=== PATIENT | female | born 1940 | race Caucasian/White ===

== ENCOUNTER → 2024-01-17 14:33 | Outpatient (REF) | payer OTHER, SELFPAY | LOC: RAD 14:33 | PROVIDERS: ATTENDING PHYSICIAN Nurse Practitioner | DX: J18.9 Pneumonia, unspecified organism (principal) | CPT/HCPCS: 71046 ==

== ENCOUNTER 2024-10-11 08:03 | Inpatient (IN) | payer OTHER, SELFPAY ==
[2024-09-13 13:20] VITALS: BMI 34.2
[2024-09-13 13:42] LABS: Hematocrit 37.7 % (37.0-47.0); Hemoglobin 12.9 g/dL (12.0-16.0); Mean Corp Hgb Conc. 34.2 g/dL (33.0-37.0); Mean Corpuscular Hgb 31.5 pg (27.0-31.0); Mean Platelet Volume 9.1 fL (7.4-10.4); Platelet Count 264 10^3/uL (130-400); Red Cell Dist. Width 13.4 % (11.5-14.5); White Blood Cell Count 8.6 10^3/uL (4.8-10.8)
[2024-09-13 14:08] LABS: Glycohemoglobin (HgbA1c) 5.4 % (4.0-5.6)
[2024-09-13 14:09] LABS: ALT (SGPT) 21 U/L (0-35); AST (SGOT) 26 U/L (14-36); Albumin 4.6 g/dl (3.5-5.0); Alkaline Phosphatase 72 U/L (38-126); Blood Urea Nitrogen 27 mg/dl (7-17); Calcium 9.8 mg/dl (8.4-10.2); Carbon Dioxide 25 mmol/L (22-30); Chloride 100 mmol/L (98-107); Estimated Creatinine Clearance 39 ml/min; Glucose 105 mg/dl (70-99); Potassium 4.5 mmol/L (3.5-5.1); Sodium 138 mmol/L (135-145); eGFR 49.24
[2024-10-04 10:10] VITALS: BMI 34.2
[2024-10-04 10:40] VITALS: BMI 34.2
[2024-10-11] VITALS (17 sets, daily range): BP systolic 91–155; BP diastolic 48–85; PULSE 61; O2SAT 92
[2024-10-11] MEDS: TYLENOL 650 MG PO ×3 (08:42→19:47)
[2024-10-11] MEDS: CELEBREX 200 MG PO (08:43)
--- NOTE | 2024-10-11 11:59 | W.DS.TRANS ---
DC Summary - Processing Tech
-
Discharge Instructions:
Sleep Apnea Risk Intermediate
Discharge Diagnosis/Procedures R TKA Dr. Ross 10/11/24
Diet As tolerated
Activity With Walker
Driving Restrictions No driving
Bathing Restrictions OK to Shower
Other Services PT
Instructions:
Stand-Alone Forms: Total Hip/Knee Replacement D/C
Changes to Home Medications: Yes
Discharge Medications:
DC Medications w/original date entered in Mobile Event Guide
levothyroxine 25 mcg tablet 25 mcg PO DAILY Thyroid 03/02/19
hydrochlorothiazide 12.5 mg tablet 25 mg PO BID Fluid retention/Swelling 03/15/19
glucosamine sulf dipot chlr,msm,chond 550 mg-C 30 mg-colby 1 mg capsule (Glucosamine Chondroitin) 1 ea PO DAILY Supplement ##0 06/06/20
losartan 50 mg tablet 100 mg (2 x 50 mg) PO DAILY Blood pressure ##0 06/06/20
Vitamin W-Gzbp-Zaemznxux 1 dose PO DAILY 10/04/24
calcium carbonate 1,000 mg PO DAILY 10/04/24
cholecalciferol (vitamin D3) 25 mcg (1,000 unit) tablet (Vitamin D3) 25 mcg PO DAILY 10/04/24
chromium picolinate 400 mcg tablet 800 mcg PO DAILY 10/04/24
coenzyme Q10 100 mg capsule (CoQ-10) 200 mg PO DAILY 10/04/24
mecobalamin (vitamin B12) 1,000 mcg chewable tablet 1,000 mcg PO DAILY 10/04/24
metoprolol succinate 100 mg tablet,extended release 24 hr 100 mg PO DAILY 10/04/24
metoprolol succinate 50 mg tablet,extended release 24 hr 50 mg PO HS 10/04/24
mupirocin 2 % topical ointment 1 applic topical BID 10/04/24
omega 7-gah-esd-fish oil 1,000 mg (120 mg-180 mg) capsule (Fish Oil) 1 cap PO DAILY 10/04/24
vit C 250 mg-vit E 90 mg-zinc 40 mg-copper 1 ko-uhvljd-uingyz capsule (PreserVision AREDS-2) 1 ea PO BID Supplement 10/04/24
acetaminophen 500 mg capsule 1,000 mg (2 x 500 mg) PO QID #0 caps 10/11/24
aspirin 325 mg tablet 325 mg PO DAILY blood clot prevention #1 tab 10/11/24
dexamethasone 4 mg tablet 4 mg PO BID inflammation #6 tabs 10/11/24
docusate sodium 100 mg capsule (Colace) 100 mg PO BID stool softner #1 cap 10/11/24
magnesium hydroxide 400 mg/5 mL oral suspension (Milk of Magnesia) 30 ml PO HS PRN Constipation #1 mL 10/11/24
ondansetron 4 mg disintegrating tablet 4 mg PO Q6H PRN n/v #20 tabs 10/11/24
oxycodone 5 mg tablet 5 mg PO Q6H PRN 1 tab moderate pain, 2 tabs severe pain #30 tabs 10/11/24
sennosides 8.6 mg tablet (Senokot) 17.2 mg (2 x 8.6 mg) PO BID laxative #2 tabs 10/11/24
Home Medication Changes
acetaminophen 500 mg capsule 1,000 mg (2 x 500 mg) PO QID #0 caps 10/11/24
aspirin 325 mg tablet 325 mg PO DAILY blood clot prevention #1 tab 10/11/24
dexamethasone 4 mg tablet 4 mg PO BID inflammation #6 tabs 10/11/24
docusate sodium 100 mg capsule (Colace) 100 mg PO BID stool softner #1 cap 10/11/24
magnesium hydroxide 400 mg/5 mL oral suspension (Milk of Magnesia) 30 ml PO HS PRN Constipation #1 mL 10/11/24
ondansetron 4 mg disintegrating tablet 4 mg PO Q6H PRN n/v #20 tabs 10/11/24
oxycodone 5 mg tablet 5 mg PO Q6H PRN 1 tab moderate pain, 2 tabs severe pain #30 tabs 10/11/24
sennosides 8.6 mg tablet (Senokot) 17.2 mg (2 x 8.6 mg) PO BID laxative #2 tabs 10/11/24
Pending Results: No
[2024-10-11] MEDS: NORMOSOL-R/PLASMALYTE-A 1000 IV (15:07)
[2024-10-11] MEDS: ROXICODONE 5 MG PO (15:38)
[2024-10-11] MEDS: SYNTHROID 25 MCG PO (16:45)
[2024-10-11] MEDS: ASPIRIN 325 MG PO (17:51)
[2024-10-11] MEDS: ANCEF 5 IV (17:51)
[2024-10-11] MEDS: SENOKOT 17.2 MG PO (19:47)
[2024-10-11] MEDS: DECADRON 6 MG IV (19:47)
[2024-10-11] MEDS: COLACE 100 MG PO (19:47)
[2024-10-11] MEDS: BACTROBAN 2% OINTMENT 1 APPLIC NASAL (19:48)
[2024-10-11] MEDS: ULTRAM 25 MG PO (19:54)
[2024-10-11] MEDS: TOPROL XL 25 MG PO (21:57)
[2024-10-11] MEDS: NEURONTIN 300 MG PO (21:58)
[2024-10-12] MEDS: TYLENOL 650 MG PO ×4 (00:32→12:57)
[2024-10-12] MEDS: ANCEF 5 IV (02:58)
[2024-10-12 03:20] VITALS: BP 117/73
[2024-10-12] MEDS: SYNTHROID 25 MCG PO (05:35)
[2024-10-12] MEDS: ROXICODONE 2.5 MG PO (05:41)
[2024-10-12 07:10] VITALS: BP 136/67
--- NOTE | 2024-10-12 07:56 | W.PN.UPDATE ---
Update Note
Progress Note Update
pt sound asleep, I let her rest. plan for pt today and home later this am
[2024-10-12] MEDS: TOPROL XL 50 MG PO (08:08)
[2024-10-12] MEDS: ASPIRIN 325 MG PO (08:08)
[2024-10-12] MEDS: ULTRAM 25 MG PO (08:09)
[2024-10-12] MEDS: DECADRON 6 MG IV (08:09)
[2024-10-12] MEDS: BACTROBAN 2% OINTMENT 1 APPLIC NASAL (08:09)
[2024-10-12] MEDS: COLACE 100 MG PO (08:09)
[2024-10-12] MEDS: SENOKOT 17.2 MG PO (08:09)
--- NOTE | 2024-10-12 09:57 | W.PN.ORTHO ---
Today's Communication / Plan
-
d/c-patient lives alone and is w/o transportation to therapy -arranged home care
Assessment
.
Distal Motor Intact: Yes
Dressing:
Clean, dry and intact.
Plan
.
Surgery / Date: Alireza Ross 10/11/24
DVT Prophylaxis: Aspirin
Activity:
Out of bed.
PT/OT
Discharge Plan: Home w/ [facility]
Subjective
.
.:
Patient resting comfortably.
Vital Signs and Labs
.
Vital Signs and Labs:
Lab Results
09/13/24 12:21
09/13/24 12:21
Temp Pulse Resp BP Pulse Ox
97.8 F 75 16 136/67 97
10/12/24 07:10 10/12/24 08:08 10/12/24 07:10 10/12/24 08:08 10/12/24 07:10
Non-invasive Hgb result: 11.0
Physical Exam
-
HEENT: No pallor, cyanosis, or jaundice. Throat clear.
NECK: Supple. No JVD.
RESPIRATORY: Lungs clear to auscultation.
CVS: S1, S2 normal. RRR.� No murmur, rub or gallop.
ABDOMEN: Soft, non-tender. No distension. BS+/normal.
EXTREMITIES: strength equal, no calf pain with palpation
POT RELINER: AOx3. No focal deficits. strip polisher grossly intact
--- NOTE | 2024-10-12 10:17 | CM ---
Patient seen today working with OT
R TKA
IA completed. Case management consult completed.Explained IMM & verbalize understanding
Lives in a 1 story velma alone, 2 steps to enter
PLOF: Independent, no device
DME: Walker, cane, commode
Unable to get to outpatient post-op ([facility])
Spoke with Lisa & HH ordered
Patient prefers [facility] - referral placed in careport
PCP: Stefanie Rowe
Pharmacy: [facility]
PLAN: Home, with [id number] to transport
[2024-10-12 10:30] VITALS: BP 141/77; PULSE 68; O2SAT 95
--- NOTE | 2024-10-12 10:47 | VNURNOTE ---
Home Health Liaison met with patient to discuss [facility]therapy, visits, schedule and homebound status. Patient is agreeable and understands that visits at home will be 2-3 x per week to assess and teach medical management.Patient is aware that
[facility] will contact them for start of care in 1-2 days after discharge from [facility]. [facility] referral accepted in Care Port.
[2024-10-12 11:00] VITALS: BP 112/72
== END 2024-10-12 14:03 | disposition home health service (06) | DRG 470 ==
LOC: 2 SOUTH 08:03
PROVIDERS: ADMITTING PHYSICIAN Orthopaedic Surgery; FAMILY PHYSICIAN Hospitalist
PROC: 0SRC0J9 Replacement of Right Knee Joint with Synthetic Substitute, Cemented, Open Approach (ICD-10-PCS; 2024-10-11)
DX: M17.11 Unilateral primary osteoarthritis, right knee (principal); I10 Essential (primary) hypertension; E78.5 Hyperlipidemia, unspecified; E03.9 Hypothyroidism, unspecified; M06.4 Inflammatory polyarthropathy; Z96.652 Presence of left artificial knee joint; Z96.641 Presence of right artificial hip joint; Z79.899 Other long term (current) drug therapy; Z79.890 Hormone replacement therapy
CPT/HCPCS: 36415; 73560; 80053; 83036; 85027; 87070; 93005; 97116; 97161; 97166; 97530; C1713; C1776

== ENCOUNTER 2024-10-17 15:18 | Inpatient (IN) | payer OTHER, SELFPAY ==
[2024-10-17] VITALS (26 sets, daily range): BP systolic 30–130; BP diastolic 44–81; BMI 33.1
--- NOTE | 2024-10-17 07:27 | EDRN ---
Vj BERG currently at the pts bedside
--- NOTE | 2024-10-17 07:32 | ED.GENMED ---
History of Present Illness
<Freeman Khan PA-C - Last Filed: 10/17/24 09:06>
General
Chief Complaint: Abdominal Pain
Source: patient
Exam Limitations: none
Time Seen by Provider: 10/17/24 07:04
History of Present Illness
History of Present Illness:
84-year-old female 5 days postop from right knee arthroplasty presents with significant abdominal pain dry heaves and now lack of bowel movement. She was discharged from the hospital 4 days ago and upon discharge she had large amounts of diarrhea.
Since then she has not been able to have a bowel movement. She notes food taste bad. No fevers. She does note chills at times. She denies any blood in the stool.
Phy Exam
<Freeman Khan PA-C - Last Filed: 10/17/24 09:06>
Physical Exam
Physical Exam:
General: Uncomfortable appearing female no acute respiratory distress
HEENT: Normocephalic atraumatic
Heart: Regular rate and rhythm
Lungs: Clear no wheeze
Abdomen slightly firm and tender diffusely. Mild guarding or no rebound
Extremities: No cyanosis or edema
Skin: Warm no rash
Musculoskeletal exam: Right knee with near full extension and flexion almost to 90 degrees
Course
<MARILEE Clemente Last Filed: 10/17/24 09:06>
Orders/Labs/Results
Orders:
Orders
10/17/24 07:29
CT Abd/pelvis W Iv Cont Urgent
Comment:
Reason For Exam: abd pain, vomiting
0.9% Sodium Chloride 1000 ml [Nss] 1,000 ml IV BOLUS
Ondansetron Injectable [Zofran] 4 mg IV NOW STA
10/17/24 07:41
Complete Blood Count/With Diff Urgent
Comprehensive Metabolic Panel Urgent
Lipase Urgent
10/17/24 08:49
HYDROmorphone [Dilaudid] 0.5 mg IV NOW STA
Piperacillin/Tazo 3.375 Gram [Zosyn] 3.375 gram in 50 ml IV NOW
10/17/24 08:59
Ondansetron Injectable [Zofran] 4 mg .ROUTE .[facility]-MED ONE
10/17/24 09:11
Lactic Acid Q4H
Comment: CANCEL 2nd LACTIC ACID IF 1st LACTIC ACID IS LESS THAN 2
Blood Culture Q30M
ALFONSO Source: Blood/Venous
Specimen Description:
Blood Culture Q30M
ALFONSO Source: Blood/Venous
Specimen Description:
10/17/24 09:15
0.9% Sodium Chloride 1000 ml [Nss] 1,000 ml IV BOLUS
Pantoprazole 80 mg/100 ml Nss [Protonix] 80 mg in 100 ml IV Q10H
10/17/24 13:15
Lactic Acid Q4H
Comment: CANCEL 2nd LACTIC ACID IF 1st LACTIC ACID IS LESS THAN 2
Abnormal Lab Results
10/17/24
07:41
WBC 11.2 H 10^3/uL
(4.8-10.8)
RBC 3.89 L 10^6/uL
(4.20-5.40)
MCH 31.1 H pg
(27.0-31.0)
MCHC 32.3 L g/dL
(33.0-37.0)
Abs Immat Gran (auto) 0.1 H 10^3/uL
(0-0.05)
Absolute Neuts (auto) 7.9 H 10^3/uL
(1.4-6.5)
Absolute Monos (auto) 0.8 H 10^3/uL
(0.1-0.6)
Immature Gran % 0.6 H %
(0-0.5)
BUN 42 H mg/dl
(7-17)
Creatinine 1.4 H mg/dL
(0.6-1.0)
Glucose 165 H mg/dl
(70-99)
Total Protein 6.2 L g/dl
(6.3-8.2)
10/17/24 07:41
10/17/24 07:41
Vital Signs
Initial and Last Documented VS:
Initial Vital Signs
Temp Pulse Resp BP Pulse Ox
97.6 F 79 18 119/66 95
10/17/24 06:10 10/17/24 06:10 10/17/24 06:10 10/17/24 06:10 10/17/24 06:10
Last Documented Vital Signs
Temp Pulse Resp BP Pulse Ox
97.6 F 79 20 117/54 97
10/17/24 06:10 10/17/24 10:36 10/17/24 10:36 10/17/24 10:36 10/17/24 10:36
<Chele Calderón, DO - Last Filed: 10/17/24 11:27>
Orders/Labs/Results
Orders:
Orders
10/17/24 07:29
CT Abd/pelvis W Iv Cont Urgent
Comment:
Reason For Exam: abd pain, vomiting
0.9% Sodium Chloride 1000 ml [Nss] 1,000 ml IV BOLUS
Ondansetron Injectable [Zofran] 4 mg IV NOW STA
10/17/24 07:41
Complete Blood Count/With Diff Urgent
Comprehensive Metabolic Panel Urgent
Lipase Urgent
10/17/24 08:49
HYDROmorphone [Dilaudid] 0.5 mg IV NOW STA
Piperacillin/Tazo 3.375 Gram [Zosyn] 3.375 gram in 50 ml IV NOW
10/17/24 08:59
Ondansetron Injectable [Zofran] 4 mg .ROUTE .[facility]
10/17/24 09:11
Lactic Acid Q4H
Comment: CANCEL 2nd LACTIC ACID IF 1st LACTIC ACID IS LESS THAN 2
Blood Culture Q30M
ALFONSO Source: Blood/Venous
Specimen Description:
Blood Culture Q30M
ALFONSO Source: Blood/Venous
Specimen Description:
10/17/24 09:15
0.9% Sodium Chloride 1000 ml [Nss] 1,000 ml IV BOLUS
Pantoprazole 80 mg/100 ml Nss [Protonix] 80 mg in 100 ml IV Q10H
10/17/24 13:15
Lactic Acid Q4H
Comment: CANCEL 2nd LACTIC ACID IF 1st LACTIC ACID IS LESS THAN 2
Abnormal Lab Results
10/17/24
07:41
WBC 11.2 H 10^3/uL
(4.8-10.8)
RBC 3.89 L 10^6/uL
(4.20-5.40)
MCH 31.1 H pg
(27.0-31.0)
MCHC 32.3 L g/dL
(33.0-37.0)
Abs Immat Gran (auto) 0.1 H 10^3/uL
(0-0.05)
Absolute Neuts (auto) 7.9 H 10^3/uL
(1.4-6.5)
Absolute Monos (auto) 0.8 H 10^3/uL
(0.1-0.6)
Immature Gran % 0.6 H %
(0-0.5)
BUN 42 H mg/dl
(7-17)
Creatinine 1.4 H mg/dL
(0.6-1.0)
Glucose 165 H mg/dl
(70-99)
Total Protein 6.2 L g/dl
(6.3-8.2)
10/17/24 07:41
10/17/24 07:41
Vital Signs
Initial and Last Documented VS:
Initial Vital Signs
Temp Pulse Resp BP Pulse Ox
97.6 F 79 18 119/66 95
10/17/24 06:10 10/17/24 06:10 10/17/24 06:10 10/17/24 06:10 10/17/24 06:10
Last Documented Vital Signs
Temp Pulse Resp BP Pulse Ox
97.6 F 79 20 117/54 97
10/17/24 06:10 10/17/24 10:36 10/17/24 10:36 10/17/24 10:36 10/17/24 10:36
<Freeman Khan PA-C - Last Filed: 10/17/24 09:06>
MDM/Problems Addressed
Differential Diagnosis Includes:
Patient with abdominal pain 5 days postop right knee replacement. Question ileus versus bowel obstruction vs perforation versus infectious process
Labs pending. Will hydrate and do Zofran for nausea. CT pending.
<Chele Calderón DO - Last Filed: 10/17/24 11:27>
*Critical Care Note
Total Time (30-74mins, 75-104mins- exclusive of procedures): 30
comment:
Critical care statement: A total of 30 minutes of critical care time was provided for this patient. This includes management of unstable vital signs, evaluation of the patient at bedside, reviewing the patient's pertinent medical records, discussion
with consultants, review of old EKGs and review of pertinent medical records. This time with separate from time utilized to perform the aforementioned documented procedures
<Freeman Khan PA-C - Last Filed: 10/17/24 09:06>
Update Note
Update Note:
Preliminary read by ED provider shows free air in the abdomen. Concern for possible perforation. Zosyn ordered Dilaudid ordered pending official report. Discussed CT with radiology who suggest perforated duodenal ulcer.
Relayed this to the patient as well as the patient's son Karlo Ferreira on the telephone. Nimo ordered blood cultures and lactic ordered. Notified general surgery
Hospitalist made aware
ED Attending Note
<Freeman Khan PA-C - Last Filed: 10/17/24 09:06>
-
Portions of this chart may have been created with voice recognition software.� Occasional wrong word or��sound alike� substitutions may have occurred due to the inherent limitations of voice recognition software.
<Chele Calderón DO - Last Filed: 10/17/24 11:27>
ED Attending Note
Patient seen and examined by attending physician: Yes
I performed a history and physical exam of patient and discussed management with resident, I reviewed resident's note and agree with documented findings and plan of care.: Yes
ED Attending Note:
I reviewed and agree with history and treatment plan by Vj Khan. My exam revealed 84-year-old female who appears uncomfortable. Afebrile. CT abdomen pelvis consistent with duodenal perforation. Dr. Aguirre will take to the OR for repair.
Discharge Plan
Departure
Patient Disposition: Admit
Date of Disposition: 10/17/24
Time of Disposition: 09:02
Admit to: OR
Presentation/result/management discussed w/ accepting MD/DO: Hospitalist
Discharge Problem:
PERFORATED DUODENAL ULCER
Prescriptions:
No Action
levothyroxine 25 MCG tablet
25 mcg PO DAILY
hydrochlorothiazide 12.5 MG tablet
12.5 mg PO BID
losartan 50 MG tablet
100 mg PO DAILY Qty: 0 0RF
metoprolol succinate 50 mg Tablet Extended Release 24 Hr
50 mg PO HS
metoprolol succinate 100 mg Tablet Extended Release 24 Hr
100 mg PO DAILY
cholecalciferol (vitamin D3) [Vitamin D3] 25 mcg (1,000 unit) Tablet
25 mcg PO DAILY
calcium carbonate 500 mg calcium (1,250 mg) Tablet
1,000 mg PO DAILY
chromium picolinate 400 mcg Tablet
800 mcg PO DAILY
sennosides [Senokot] 8.6 mg tablet
17.2 mg PO BID Qty: 2 0RF
aspirin 325 mg tablet
325 mg PO DAILY Qty: 1 0RF
docusate sodium [Colace] 100 mg capsule
100 mg PO BID Qty: 1 0RF
oxycodone 5 mg tablet
5 mg PO Q6H PRN (Reason: 1 tab moderate pain, 2 tabs severe pain) Qty: 30 0RF
cyanocobalamin (vitamin B-12) 1,000 mcg Tablet
1,000 mcg PO DAILY
magnesium hydroxide [Milk of Magnesia] 400 mg/5 mL suspension
30 ml PO HSPRN PRN (Reason: Constipation)
ondansetron [ondansetron] 4 mg tablet,disintegrating
4 mg PO Q6HPRN PRN (Reason: nausea)
acetaminophen 500 mg capsule
1,000 mg PO QIDPRN PRN (Reason: mild pain)
Referrals:
Shirley Moreno MD [Family Provider] -
Interventions
Interventions:
*Risk Screen - Suicide Last Done: 10/17/24 06:10
*General Assessment Last Done: 10/17/24 06:10
*Neglect/Abuse Screening Last Done: 10/17/24 07:34
ED- Fall Risk Assessment Last Done: 10/17/24 07:34
*ED COVID-19 Vaccine History Last Done: 10/17/24 06:10
NZ-Dxfrmq-Hzlvmeahnu Assessment Last Done: 10/17/24 07:34
Discharge Date and Time
Print Language: LITHUANIAN
[2024-10-17] MEDS: ZOFRAN 4 MG IV (07:37)
[2024-10-17] MEDS: NSS 1000 IV ×3 (07:38→17:21)
[2024-10-17 07:59] LABS: % Basophils 0.3 % (0-2); % Eosinophils 0.2 % (0-6); % Immature Granulocytes 0.6 % (0-0.5); % Lymphocytes 21.8 % (20.5-51.1); % Monocytes 6.7 % (1.7-9.3); % Neutrophils 70.4 % (42.2-75.2); Absolute Immature Granulocytes 0.1 10^3/uL (0-0.05); Absolute Lymphocytes 2.4 10^3/uL (1.2-3.4); Absolute Monocytes 0.8 10^3/uL (0.1-0.6); Absolute Neutrophils 7.9 10^3/uL (1.4-6.5); Hematocrit 37.5 % (37.0-47.0); Hemoglobin 12.1 g/dL (12.0-16.0); Mean Corp Hgb Conc. 32.3 g/dL (33.0-37.0); Mean Corpuscular Hgb 31.1 pg (27.0-31.0); Mean Corpuscular Volume 96.4 fL (81.0-99.0); Mean Platelet Volume 8.7 fL (7.4-10.4); Nucleated Red Blood Cells % 0 %; Platelet Count 299 10^3/uL (130-400); Red Blood Cell Count 3.89 10^6/uL (4.20-5.40); White Blood Cell Count 11.2 10^3/uL (4.8-10.8)
[2024-10-17 08:09] LABS: ALT (SGPT) 29 U/L (0-35); AST (SGOT) 26 U/L (14-36); Albumin 3.9 g/dl (3.5-5.0); Alkaline Phosphatase 62 U/L (38-126); Blood Urea Nitrogen 42 mg/dl (7-17); Calcium 9.2 mg/dl (8.4-10.2); Carbon Dioxide 28 mmol/L (22-30); Chloride 98 mmol/L (98-107); Estimated Creatinine Clearance 31 ml/min; Glucose 165 mg/dl (70-99); Lipase 216 U/L (23-300); Potassium 4.1 mmol/L (3.5-5.1); Sodium 135 mmol/L (135-145); Total Bilirubin 1.1 mg/dl (0.2-1.3); Total Protein 6.2 g/dl (6.3-8.2); eGFR 36.87
--- NOTE | 2024-10-17 08:45 | EDRN ---
Vj BERG currently at the pts bedside
[2024-10-17] MEDS: DILAUDID 0.5 MG IV (09:00)
[2024-10-17] MEDS: ZOSYN 50 IV ×2 (09:01→20:40)
--- NOTE | 2024-10-17 09:05 | EDRN ---
per Vj BERG this RN administered Dilaudid IV for pain and Zosyn and also placed the pt on the bus monitor, the pt is currently in NSR in the 70's
--- NOTE | 2024-10-17 09:13 | EDRN ---
per the provider two sets of blood cultures were drawn and sent and lactic acid was drawn and sent
--- NOTE | 2024-10-17 09:16 | EDRN ---
this RN noticed that the pts Sp02 dipped to 88%, this RN placed the pt on 4L NC and notified the provider Vj BERG
--- NOTE | 2024-10-17 09:18 | EDRN ---
surgery currently at the pts bedside
[2024-10-17] MEDS: PROTONIX 100 IV ×2 (09:26→18:12)
--- NOTE | 2024-10-17 09:31 | EDRN ---
surgery obtained consent at the pts bedside, per the provider this RN started Protonix gtt at 8mg/hour
--- NOTE | 2024-10-17 09:35 | CON.GS ---
Medical History
-
Chief Complaint: Abdominal pain, nausea, vomiting
History of Present Illness:
Patient is a 84 yo F with a PMH of obesity, GERD, HTN, hypothyroidism, CKD, lumbar DDD, osteoarthritis s/p R MARLENE [place] [address] Ross, and recently s/p R TKA by Dr. Ross on 10/11/2024. Ms. Ferreira was recently discharged on 10/12 to home following
her recent orthopedic procedure. She reports that she has had issues with poor appetite as well as constipation postoperatively. Over the past 24 hours she has had worsening abdominal pain as well as episodes of bloody and dark brown emesis. She
continues to have generalized abdominal pain. No recent flatus or BM. No fevers or chills. Of note, she is on a full dose aspirin as well as meloxicam. She denies any steroid use. Former smoker. She is not on a PPI. She denies any prior
abdominal surgeries.
Past Medical History
Past Medical History: GERD, HTN, Hypothyroidism, Renal Failure and Other (Obesity, lumbar DDD, osteoarthritis)
Past Surgical History: Orthopedic (R TKA on 10/11/2024, R MARLENE in 2019)
Social History
Tobacco: Former Smoker
Alcohol: Daily
Drug: None
Family History
Family History: Reviewed & Not Pertinent
Allergies / Home Medications
Allergy/AdvReac Type Severity Reaction Status Date / Time
No Known Allergies Allergy Verified 10/17/24 06:10
�Medication �Instructions �Recorded �Confirmed �Type
levothyroxine 25 mcg tablet 25 mcg PO DAILY Thyroid 03/02/19 10/17/24 History
hydrochlorothiazide 12.5 mg tablet 12.5 mg PO BID Fluid 03/15/19 10/17/24 History
retention/Swelling
losartan 50 mg tablet 100 mg (2 x 50 mg) PO DAILY Blood 06/06/20 10/17/24 Rx
pressure ##0
calcium carbonate 1,000 mg PO DAILY Supplement 10/04/24 10/17/24 History
cholecalciferol (vitamin D3) 25 25 mcg PO DAILY Supplement 10/04/24 10/17/24 History
mcg (1,000 unit) tablet (Vitamin
D3)
chromium picolinate 400 mcg tablet 800 mcg PO DAILY 10/04/24 10/17/24 History
metoprolol succinate 100 mg 100 mg PO DAILY Heart 10/04/24 10/17/24 History
tablet,extended release 24 hr Disease/Condition
metoprolol succinate 50 mg 50 mg PO HS Heart Disease/Condition 10/04/24 10/17/24 History
tablet,extended release 24 hr
aspirin 325 mg tablet 325 mg PO DAILY blood clot 10/11/24 10/17/24 Rx
prevention #1 tab
docusate sodium 100 mg capsule 100 mg PO BID stool softner #1 cap 10/11/24 10/17/24 Rx
(Colace)
oxycodone 5 mg tablet 5 mg PO Q6H PRN 1 tab moderate 10/11/24 10/17/24 Rx
pain, 2 tabs severe pain #30 tabs
sennosides 8.6 mg tablet (Senokot) 17.2 mg (2 x 8.6 mg) PO BID 10/11/24 10/17/24 Rx
laxative #2 tabs
acetaminophen 500 mg capsule 1,000 mg PO QIDPRN PRN mild pain 10/17/24 10/17/24 History
cyanocobalamin (vitamin B-12) 1,000 mcg PO DAILY 10/17/24 10/17/24 History
1,000 mcg tablet
magnesium hydroxide 400 mg/5 mL 30 ml PO HSPRN PRN Constipation 10/17/24 10/17/24 History
oral suspension (Milk of Magnesia)
ondansetron 4 mg disintegrating 4 mg PO Q6HPRN PRN nausea 10/17/24 10/17/24 History
tablet
Review of Systems
-
A 10 point review of systems was completed, and was negative except as per HPI.
Physical Exam
Vital Signs
Temp Pulse Resp BP Pulse Ox
97.6 F 82 16 101/55 87
10/17/24 06:10 10/17/24 09:15 10/17/24 09:04 10/17/24 09:14 10/17/24 09:15
10/16/24 10/17/24 10/18/24
06:59 06:59 06:59
Actual Weight 87.5 kg
Body Mass Index (BMI) 33.1
Lab Results
10/17/24 07:41
10/17/24 07:41
WBC 11.2 10^3/uL (4.8-10.8) H 10/17/24 07:41
Hgb 12.1 g/dL (12.0-16.0) 10/17/24 07:41
Hct 37.5 % (37.0-47.0) 10/17/24 07:41
Plt Count 299 10^3/uL (130-400) 10/17/24 07:41
Abs Immat Gran (auto) 0.1 10^3/uL (0-0.05) H 10/17/24 07:41
Neutrophils % 70.4 % (42.2-75.2) 10/17/24 07:41
Physical Exam
General: Well Developed, Well Nourished and Pain
Respiratory: Non Labored Respirations
Cardiac: Regular Rhythm
GI: Tender, Distended, Obese and Other (Peritoneal with involuntary guarding and rebound)
Skin: Warm and Dry
Neuro: Nonfocal/Grossly Intact
Data Reviewed
-
CT Scan: Image Personally Visualized and interpreted
Labs: Labs Reviewed by me
Old Records: Reviewed
Assessment / Plan
-
Patient is a 84 yo F p/w perforated viscus
Based on risk factors including NSAID use and history of GERD as well as CT scan imaging with predominantly free air within the upper abdomen as well as thickening of the stomach and small bowel this is most likely related to a perforated gastric or
duodenal ulcer. Differential includes perforated small bowel or colon. Hemodynamically stable without peritoneal on exam. Unlikely to resolve with antibiotics and bowel rest alone. Recommend operative management. Patient agrees to proceed.
Plan for exploratory laparotomy, repair of perforated viscus, possible bowel resection. Procedure itself, as well as the risks, benefits, and alternatives was discussed. Specifically, we discussed the risks of bleeding, infection, injury to
surrounding structures, hernia formation, and general anesthetic risks. Typical postprocedural recovery was discussed. We discussed need for NGT, operative drain, and Condon catheter placement. We discussed the need for bowel rest and delays in
resuming oral nutrition. We discussed that at her age and with 2 recent operations she is likely to have a slow recovery will take at least 4 to 6 weeks. We discussed the potential need for rehab or fci facility given the above. All
questions answered. Consent signed.
-- Exploratory laparotomy, repair of perforated ulcer, possible bowel resection
-- NPO, IVF
-- Hold all NSAIDS
-- PPI gtt
-- Abx: Zosyn, will obtain operative cultures may need fungal coverage
-- Admit to Hospitalist post-op
[2024-10-17 09:41] LABS: Lactic Acid 1.5 mmol/L (0.7-2.0)
--- NOTE | 2024-10-17 09:54 | EDRN ---
the pts family are currently at the pts bedside
--- NOTE | 2024-10-17 10:34 | EDRN ---
the pt is resting in the stretcher in the lowest position, side rails up x2, call tierney within reach, HOB elevated, NSR in the 70's, the pt is currently still on 4L with Sp02 at 98%, no s/s of distress, the pt denies needing anything at this time,
there are three family members at the pts bedside, still awaiting for the OR to call this RN for verbal report, will continue to monitor the pt closely
--- NOTE | 2024-10-17 10:51 | W.SUR.PREOP ---
Pre-Operative Surgical Note
-
I have examined this patient prior to the performance of the scheduled procedure.
The patient's condition is unchanged from the time of the current History and
Physical and the patient is able to undergo the scheduled procedure.
--- NOTE | 2024-10-17 11:07 | EDRN ---
the pts son approached this RN at the nurses station and stated to this RN, 'Is there anyway that we can get her into an OR sometime soon?', this RN notified the surgeon Dr. Cowan, awaiting for an update, the pt is resting in stretcher in the
lowest position, side rails up x2, call tierney within reach, HOB elevated, VS WNL, the pt is in NSR in the 70's, the pt is currently still on 4L NC Sp02 98%, will continue to monitor the pt closely
--- NOTE | 2024-10-17 11:13 | EDRN ---
this RN called the OR due to not hearing back from the surgeon and per the OR nurse they will let me know when it is time for the pt to go to the OR, the OR nurse stated that she would call this RN with an update, this RN notified the pt and the pts
family
--- NOTE | 2024-10-17 11:55 | EDRN ---
this RN reached out to Dr. Cowan in regards to a time for the OR for the patient, awaiting for a response
--- NOTE | 2024-10-17 13:25 | EDRN ---
the OR nurse Starla RN called this RN and this RN gave verbal report
--- NOTE | 2024-10-17 13:33 | W.PN.HOSP.TC ---
Today's Communication/Plan
-
For OR now
Assessment / Plan
Assessment / Plan
Pt underwent Rt Total Knee arthroplasty on 10/11. Was dc to home on ASA as DVT prophylaxis.
Onset of abd pain on 10/12, shortly after DC. Unable to eat. Last BM was [address] RESEARCH [address]OR
[address] scan of abd: Findings consistent with perforated duodenal ulcer. Extensive free air within the upper abdomen with associated inflammatory stranding. Small volume of free fluid within the pelvis. Trace perihepatic ascites.
Pt seen by DR. Cowan and will be going to the OR shortly
Essential HTN
BP meds are on hold, follow post op BP
Abn EKG
discussed with Dr. Marquez
S/P Rt TKR
Hypothyroid on replacement
P:Pt is medically cleared for OR
Will admit to ICU post op. Discussed with Dr. Segal
follow BP
pt is a full code
see dictated note
Anticipated Discharge: > 48 hours
Subjective/Interval History
-
Date of Service: October 17, 2024
Severe abdominal pain
Objective Data
-
Labs:
Laboratory Results
10/17/24
07:41
WBC 11.2 H
Hgb 12.1
Hct 37.5
Plt Count 299
Sodium 135
Potassium 4.1
Chloride 98
Carbon Dioxide 28
BUN 42 H
Creatinine 1.4 H
Glucose 165 H
Calcium 9.2
Total Bilirubin 1.1
AST 26
ALT 29
Alkaline Phosphatase 62
Vital Signs:
Vital Signs
Temp Pulse Resp BP Pulse Ox
97.6 F 79 20 129/66 95
10/17/24 11:00 10/17/24 13:15 10/17/24 11:00 10/17/24 13:00 10/17/24 13:15
Review of Systems
-
History Source: Patient, Family (son, dgt, d-i-l in room), Physician (discussed with Dr. Segal) and Coordinated Provider
Constitutional: Denies Fever
EENT: Reports No Symptoms Reported
Respiratory: Reports No Symptoms
Cardiac: Denies Chest Pain
Abdomen/GI: Reports Abdominal Pain and Constipated
Musculoskeletal: Reports No Symptoms
Physical Exam
-
General: Well Developed, Well Nourished and Pain
HEENT: Normocephalic, Atraumatic and Moist Mucous Membranes
Respiratory: Clear to Auscultation (on shallow respirations)
Cardiac: Regular Rhythm and S1/S2
GI: Tender and Distended; Negative Normal Bowel Sounds
Musculoskeletal: No Clubbing, No Cyanosis and No Edema
Neuro: Awake and Alert
--- NOTE | 2024-10-17 13:44 | W.PN.UPDATE ---
Update Note
Progress Note Update
ECG specific ST-T wave changes and normal QT interval. No acute abnormalities. No cardiac ischemia. Please call if further questions.
--- NOTE | 2024-10-17 15:28 | W.IMMPOSTOP ---
Surgical Immed Post Op Note
-
Primary Surgeon: Camryn
Assisting Surgeon: None
Pre-op Diagnosis: Perforated gastric ulcer
Post-op Diagnosis: Perforated gastric ulcer
Procedure Performed: Exploratory laparotomy, repair of perforated gastric ulcer with modified Constantino patch repair
Anesthesia Type: General
Specimen / Cultures: None
Estimated Blood Loss: 7 cc
Complications: None
Operative Findings:
1. Large 1.5 cm gastric ulcer, pre-pyloric
2. Interrupted 2-0 silk primary repair --> Constantino patch with tongue of omentum secured with tails
3. Negative leak test x2
4. NGT position confirmed in OR
5. 19 Fr JERMAINE overlying repair
--- NOTE | 2024-10-17 16:50 | PTCARENOTE ---
Received pt from PACU and transferred to the ICU bed. She is awake and alert. NINA. Left FA #20g with Normosol infusing, changed to 0.9nss@100ml/hr as ordered. Protonix @8mg/hr. Right FA#20gprotective catheter flushed and patent. +peripheral pulses.
Weak pedal pulses. L/E edema with the right > left. Right knee dressing is original from her prior knee surgery that has old drainage on it. She stated that the visiting nurse was supposed to remove it tomorrow. She denies and numbness or tinging,
negative Homans. Tolerating nasal cannula 2 liters, dim breath sounds in the bases. Importance of using the incentive spirometer stresses to her being she had 2 surgeries within a week of each other she is high risk of PNA & blood clots. She
verbalized her understanding and demonstrated her use of the IS to 750ml. She stated that prior to her knee surgery 5 days ago she was a daily wine drinker. She also stated that she never had alcohol withdrawal, and the last time she drank wine or
any alcohol was at least 5 days ago. I had stress that sobriety would be recommended especially with her recent diagnosis this admission. She verbalized her understanding. Absent BSX4. Right nare SS secured @55cm to LIWS. Very small amount of clear
brown bilious secretions with scant flecks of red draining into canister. Indwelling Condon catheter placed on stat lock upon arrival. Draining small amount of cloudy yellow urine. Abdominal incision with Primaseal dressing with scant areas of
shadowing noted, marked with pen. SHe has an ice pack to her abdomen. She was informed of the plan of care and the use of the call tierney. She stated she is a DNR, that she did not want to be resuscitated. Will notify . Daughter and DIL at the
bedside. Updated on the plan of care. Safe environment maintained.
--- NOTE | 2024-10-17 17:49 | PTCARENOTE ---
Dr. Ro notified via TT that per the pt, she is a 'Do Not Resuscitate'.
--- NOTE | 2024-10-17 18:12 | PTCARENOTE ---
Ok to administer Lovenox dose tonight per Dr. Cowan.
[2024-10-17] MEDS: LOVENOX 40 MG SC (19:20)
--- NOTE | 2024-10-17 20:30 | PTCARENOTE ---
supervisor malted milk, aaox3, reports pain only with coughing, turned/repositioned. SR HR 80s. B/L IV WNL- NSS/Protonix gtt infusing per work list documentation. R SS to LIWS. Condon draining adequate amt yellow urine. mouth care done. POC discussed, call
tierney with pt.
[2024-10-17] MEDS: OFIRMEV 100 IV (20:40)
[2024-10-18] VITALS (18 sets, daily range): BP systolic 100–146; BP diastolic 46–70; BMI 33.7
[2024-10-18] MEDS: ZOSYN 50 IV ×4 (03:05→20:27)
[2024-10-18] MEDS: PROTONIX 100 IV ×2 (03:05→16:13)
[2024-10-18] MEDS: NSS 1000 IV ×2 (03:05→12:58)
[2024-10-18] MEDS: OFIRMEV 100 IV ×3 (03:06→16:10)
--- NOTE | 2024-10-18 04:00 | PTCARENOTE ---
no changes in pt assessment.
[2024-10-18 06:35] LABS: Hematocrit 30.8 % (37.0-47.0); Hemoglobin 10.2 g/dL (12.0-16.0); Mean Corp Hgb Conc. 33.1 g/dL (33.0-37.0); Mean Corpuscular Hgb 32.1 pg (27.0-31.0); Mean Corpuscular Volume 96.9 fL (81.0-99.0); Mean Platelet Volume 8.8 fL (7.4-10.4); Platelet Count 216 10^3/uL (130-400); Red Blood Cell Count 3.18 10^6/uL (4.20-5.40); White Blood Cell Count 10.3 10^3/uL (4.8-10.8)
[2024-10-18 06:41] LABS: INR 1.22; PT 15.7 Sec (11.4-14.6)
[2024-10-18 06:42] LABS: APTT 36.6 Sec (23.4-35.0)
[2024-10-18 07:03] LABS: Blood Urea Nitrogen 30 mg/dl (7-17); Calcium 7.9 mg/dl (8.4-10.2); Carbon Dioxide 27 mmol/L (22-30); Chloride 105 mmol/L (98-107); Estimated Creatinine Clearance 37 ml/min; Glucose 115 mg/dl (70-99); Potassium 4.3 mmol/L (3.5-5.1); Sodium 139 mmol/L (135-145); eGFR 44.36
--- NOTE | 2024-10-18 07:50 | WOUNDNOTE ---
WOC RN note: Marko texted RN Tash re: WOC RN does not manage surgical incisions and suggested she marko text jessica Davidson about any knee post op incisional care. Patient s/p R total knee Arthroplasty done by Dr. Ross on 10/11. Nurse is
agreeable to cancel WOC RN consult.
--- NOTE | 2024-10-18 07:50 | PTCARENOTE ---
Received pt laying in bed. She is awake and alert. She has a bath blanket to splint her abdominal incision for repositioning and coughing. She states her pain is manageable as long as she isn't moving or coughing. I reinforced that she should be
able to move and cough at an acceptable pain level. SHe verbalized her understanding Right FA with ABX, left Fa with IVF and Protonix drip. Knee-hi scd's intact. Right L/E more edematous than the left. +peripheral pulses. Right knee incision
unchanged with original post op dressing with old drainage. Nasal cannula 4 liters with pulse ox 91%. Dim in the bases. I implored her to use the incentive spirometer every 10 minutes while awake. I observed her using the IS to just under 1 liter. I
also stressed again that because she had 2 surgeries in under 1 week she is at high risk of developing PNA. She verbalized her understanding. Our mutual goal was to taper her oxygen and to sit in the chair. Absent BSX4. Right are Bina young secured
55cm, flushed as ordered. Maintained on LIWS. Small amount of brown bilious secretions draining. Due to void @ 1130. AM care performed, ice pack to right knee. Repositioned on her side. Safe environment maintained.
--- NOTE | 2024-10-18 08:13 | VNURNOTE ---
Chart reviewed. Patient is [facility] and [facility]. Will continue to follow hospital course and DC plans.
--- NOTE | 2024-10-18 09:41 | W.PN.GS2 ---
Today's Communication / Plan
-
-- Tentative plan for UGI on POD#3 (13)
-- Decrease IVF
-- Pain control: IV Tylenol and Dilaudid, NO NSAIDs including ASA
-- GI: PPI gtt will transition to PPI BID tomorrow
-- OOB to chair, PT for recent knee TKA
Assessment / Plan
-
Patient is a 84 yo F p/w perforated gastric ulcer POD#1 s/p exploratory laparotomy, modified Constantino patch repair of gastric ulcer
AVSS
WBC normalized, Cr trending down, baseline CKD
Pain well-controlled, JERMAINE outputs nonbilious.
Recovering well. No major postoperative concerns. Acute respiratory insufficiency likely multifactorial due to atelectasis, third spacing, splinting from pain, and general medical condition. No significant pulmonary effusion on chest X-ray
overnight. Plan to decrease IVF, will need to monitor urine output.
-- NPO, NGT decompression
-- Tentative plan for UGI on POD#3 (1213)
-- Decrease IVF
-- JERMAINE to remain in place
-- Abx: Zosyn, WBC normalized, no need for fungal coverage at this time, would plan on 7 days treatment
-- Pain control: IV Tylenol and Dilaudid, NO NSAIDs including ASA
-- GI: PPI gtt will transition to PPI BID tomorrow
-- DVT: Lovenox
-- OOB to chair, PT for recent knee TKA
Subjective Data
-
Date of Service: October 18, 2024
No major complaints. Abdominal soreness well-controlled. Denies any significant SOB, however, nursing notes desaturations with removal of supplemental O2. No chest pain. No nausea. No flatus or BM. Afebrile.
Objective Data
-
Intake and Output
10/17/24 10/18/24 10/19/24
06:59 06:59 06:59
Intake Total 1899 510 / 510
Output Total 1170 / 1170 35 / 35
Balance 730 / 840 475 / 475
Intake:
IV fluids (Total) 1750 / 1860 330 / 330
Normosol 100 / 100
Nss 1,000 ml @ 100 mls/hr IV . 1500 / 1600 300 / 300
Q10H [facility] Rx#:[id number]
Protonix 150 / 160 30 / 30
IV piggybacks 150 / 150 150 / 150
Amount instilled into GI Tube ( 0 / 0 30 / 30
Total)
Mcgrath Sump 0 / 0 30 / 30
Output:
Drain Output (Total) 160 / 160 35 / 35
Right Abdomen Ramesh-Marcus 160 / 160 35 35
Urine, Condon 1010 / 1010
Vital Signs
Temp Pulse Resp BP Pulse Ox
98.2 F 83 15 135/60 93
10/18/24 08:16 10/18/24 09:00 10/18/24 09:00 10/18/24 09:00 10/18/24 09:00
Lab Results
10/18/24 06:04
10/18/24 06:04
Calcium 7.9 mg/dl (8.4-10.2) L 10/18/24 06:04
Total Bilirubin 1.1 mg/dl (0.2-1.3) 10/17/24 07:41
AST 26 U/L (14-36) 10/17/24 07:41
ALT 29 U/L (0-35) 10/17/24 07:41
Alkaline Phosphatase 62 U/L (38-126) 10/17/24 07:41
Total Protein 6.2 g/dl (6.3-8.2) L 10/17/24 07:41
Albumin 3.9 g/dl (3.5-5.0) 10/17/24 07:41
Physical Exam
-
Gen: NAD
HEENT: NGT with minimal gastric outputs
Abd: soft, tender to palpation (appropriate), ND, non-peritoneal, midline dressing with some shadowing, JERMAINE serosang
--- NOTE | 2024-10-18 11:17 | CM ---
CM following re: discharge planning.
Discussed in rounds, reviewed pt's chart, met with pt.
Pt is an 84 year old female, admitted with primary dx of Abdominal pain, POD#1 s/p exploratory laparotomy. Continue supportive care
Pt reports she lives alone 1SH, 2 step to enter, has 4 supportive children. Pt reports she ambulates with a walker, has a cane and BSC. Pt reports she is active with [facility] and pt expressed her desire to return back home at discharge with [facility] and
family support.
[facility] liaison following for resumptions of care.
PCP: Stefanie Rowe
Pharmacy: [facility].
D/C plan: per pt's request home with [facility] and family support. Family to transport at discharge,
CM will follow with discharge plan updates as hospitalization progresses
--- NOTE | 2024-10-18 11:23 | PTCARENOTE ---
1 assist to the chair with use of her straight cane from home. Her breath sounds while standing are coarse in the right base and diminished in the left base. She had an acceptable level of pain while transferring to the chair. Safe environment
maintained. Call tierney within her reach.
--- NOTE | 2024-10-18 11:45 | PTCARENOTE ---
Dr. Alvarado provided an update and asked RN to notify Dr. Ross of her admission to the hospital for guidance of her right knee.
--- NOTE | 2024-10-18 12:19 | CON.INTV ---
Consultation
Consultation Request
Date/Time Consultation Requested: 10/18/2024
Date/Time Consultation Performed: 10/18/2024
Requesting Provider: Dr. Alvarado
Performing Provider: Dr. Daryl Segal
Reason for Consultation: status post exploratory laparotomy-perforated gastric ulcer
Medical History
-
History of Present Illness:
84-year-old woman hospitalized in early October after having right knee total replacement. She was discharged home on aspirin prophylactically. Patient developed abdominal pain at home. Abdominal pain was progressive.
Came to the emergency room for evaluation on 10/17/2024. CT abdomen pelvis demonstrated possible perforated viscus.
Emergently taken to the operating room, underwent laparotomy that demonstrated perforated gastric ulcer.
Currently in the critical care unit with NG tube in place.
Patient feels better.
Did not require vasopressors
Denies nausea or vomiting.
Patient apparently was taking NSAIDs on and off at home for arthritis.
Past Medical History
Past Medical History: Other (See assessment and plan)
Social History
Tobacco: Non-smoker
Alcohol: Daily (Wine)
Drug: None
Living: With Family
Employment: Retired
Family History
Family History: Reviewed & Not Pertinent
Allergies / Home Medications
Allergies
Allergy/AdvReac Type Severity Reaction Status Date / Time
No Known Allergies Allergy Verified 10/17/24 06:10
Home Medications
�Medication �Instructions �Recorded �Confirmed �Last Taken �Type
levothyroxine 25 mcg tablet 25 mcg PO DAILY Thyroid 03/02/19 10/17/24 10/16/24 History
hydrochlorothiazide 12.5 mg tablet 12.5 mg PO BID Fluid 03/15/19 10/17/24 10/16/24 History
retention/Swelling
losartan 50 mg tablet 100 mg (2 x 50 mg) PO DAILY Blood 06/06/20 10/17/24 10/16/24 Rx
pressure ##0
calcium carbonate 1,000 mg PO DAILY Supplement 10/04/24 10/17/24 7 Days Ago History
~10/10/24
cholecalciferol (vitamin D3) 25 25 mcg PO DAILY Supplement 10/04/24 10/17/24 7 Days Ago History
mcg (1,000 unit) tablet (Vitamin ~10/10/24
D3)
chromium picolinate 400 mcg tablet 800 mcg PO DAILY Supplement 10/04/24 10/17/24 7 Days Ago History
~10/10/24
metoprolol succinate 100 mg 100 mg PO DAILY Heart 10/04/24 10/17/24 10/16/24 History
tablet,extended release 24 hr Disease/Condition
metoprolol succinate 50 mg 50 mg PO HS Heart Disease/Condition 10/04/24 10/17/24 10/16/24 History
tablet,extended release 24 hr
aspirin 325 mg tablet 325 mg PO DAILY blood clot 10/11/24 10/17/24 10/16/24 Rx
prevention #1 tab
docusate sodium 100 mg capsule 100 mg PO BID stool softner #1 cap 10/11/24 10/17/24 Unknown Rx
(Colace)
oxycodone 5 mg tablet 5 mg PO Q6H PRN 1 tab moderate 10/11/24 10/17/24 Unknown Rx
pain, 2 tabs severe pain #30 tabs
sennosides 8.6 mg tablet (Senokot) 17.2 mg (2 x 8.6 mg) PO BID 10/11/24 10/17/24 Unknown Rx
laxative #2 tabs
acetaminophen 500 mg capsule 1,000 mg PO QIDPRN PRN mild pain 10/17/24 10/17/24 10/16/24 History
cyanocobalamin (vitamin B-12) 1,000 mcg PO DAILY Supplement 10/17/24 10/17/24 7 Days Ago History
1,000 mcg tablet ~10/10/24
magnesium hydroxide 400 mg/5 mL 30 ml PO HSPRN PRN Constipation 10/17/24 10/17/24 Unknown History
oral suspension (Milk of Magnesia)
ondansetron 4 mg disintegrating 4 mg PO Q6HPRN PRN nausea 10/17/24 10/17/24 Unknown History
tablet
Review of Systems
-
History Source: Patient
All other systems: Negative unless noted
Vitals / Labs / Diagnostic Testing
Vital Signs
Temp Pulse Resp BP Pulse Ox
98.2 F 81 17 125/66 94
10/18/24 11:23 10/18/24 10:30 10/18/24 10:30 10/18/24 10:00 10/18/24 11:23
Lab Data
10/18/24 06:04
10/18/24 06:04
Laboratory Results
10/18/24
06:04
PT 15.7 H
INR 1.22
APTT 36.6 H
Microbiology
10/17/24 09:11 Blood/Venous Blood Culture - Preliminary
No Growth in 24 hours- Final report to follow
10/17/24 09:11 Blood/Venous Blood Culture - Preliminary
No Growth in 24 hours- Final report to follow
Diagnostic Testing:
Physical Exam
-
HEENT: Normocephalic
Cardiovascular: S1/S2
Respiratory: Clear and Non-Labored Respirations
GI: Soft, Other (Decreased bowel sounds) and Other (NG tube in place without excessive drainage/abdominal incision intact.)
Neurology: Awake, Alert, Oriented and AO x 3
Skin: Warm
General: Comfortable
Assessment
-
Status post emergent exploratory laparotomy: Perforated gastric ulcer s/p repair
Postoperative blood loss anemia
Conditions present prior admission:
Skin squamous cell carcinoma
Hypertension
Former smoker in the distant [id number] history.
Status post knee replacement 10/2024
Daily wine consumption 2 to 3/day.
Assessment and plan:
Postoperative day 1-status post expiratory laparotomy, perforated gastric ulcer repair.
Hemodynamically stable
Postoperative blood loss anemia noted hemoglobin 10.2.
Follow H&H
N.p.o. per surgery
NG tube in place
Serial abdominal exam
-
Hold aspirin
SCD for DVT prophylaxis.
-
Restart outpatient medications when cleared by surgery
-
Gentle IV fluid hydration
Follow electrolytes daily
-
Out of bed as tolerated
-
Transfer to [facility].
Patient is DNR status-Advance directives
-
No additional recommendation from the critical care perspective.
Transfer to [facility]
Sign off
--- NOTE | 2024-10-18 12:48 | TRANSFER ---
Report called to RN for room 2127, she will be transferred via WC monitored with IVF and IV Protonix infusion.
--- NOTE | 2024-10-18 14:00 | PTCARENOTE ---
Received pt from ICU, pt ambulated from wheelchair to bed, NGT connected to LIS with Q4H tap water flush, JERMAINE draining serous, post op dressings CDI, VSS, pt weaned off of oxygen, oriented to room and call tierney. Pt resting comfortably in bed at this
time.
--- NOTE | 2024-10-18 14:20 | W.PN.UPDATE ---
Update Note
Progress Note Update
Notifed as a courtesy of patient's readmisison w. bleeding gastric ulcer s/p r tka 1 week ago. Reports knee is feeling really good in spite of not being on any nsaids presently. She has excellent motion from 0-120 and had scant old dried blood
on her bandage which I left in place. She has no eccymosis which is unusual.
She can/should continue physical therapy on the R TKA wbat with our normal TKA protocol. I'm good w. whatever anticoag program prefered by medicine/gen surg. Even just squeezers fine w. me as she is very mobile with the knee and has little to no
swelling and strong anticoagulation may be contraindicated under the circumstances. Her bandage can be removed and left open to air in a few days, possibly when d/c from if that is anticipated to take a few days.
She shoudl already have an outpatient office visit set up for 3 weeks from now.
[2024-10-18] MEDS: LOVENOX 40 MG SC (17:18)
--- NOTE | 2024-10-18 18:37 | W.PN.HOSP.TC ---
Today's Communication/Plan
-
follow labs
Assessment / Plan
Assessment / Plan
Pt underwent Rt Total Knee arthroplasty on 10/11. Was dc to home on ASA as DVT prophylaxis.
Onset of abd pain on 10/12, shortly after DC. Unable to eat. 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
[address] scan of abd: Findings consistent with perforated duodenal ulcer. Extensive free air within the upper abdomen with associated inflammatory stranding. Small volume of free fluid within the pelvis. Trace perihepatic ascites.
Pt seen by DR. Cowan and went to the OR
She is now Post op day #1 (OR 10/17)
Essential HTN
BP meds are on hold, follow post op BP. BP remains on the low side, currently 119/60
Abn EKG
discussed with Dr. Marquez
S/P Rt TKR
Hypothyroid on replacement
P:Doing well post op
transfer to tele
follow BP
will need to contact ortho PA's regarding post op knee wound dressing
pt is a full code
see dictated note
Anticipated Discharge: > 48 hours
Subjective/Interval History
-
Date of Service: October 18, 2024
Awake, alert, conversant
Objective Data
-
Labs:
Laboratory Results
10/18/24
06:04
PT 15.7 H
INR 1.22
APTT 36.6 H
Sodium 139
Potassium 4.3
Chloride 105
Carbon Dioxide 27
BUN 30 H
Creatinine 1.2 H
Glucose 115 H
Calcium 7.9 L
Vital Signs:
Vital Signs
Temp Pulse Resp BP Pulse Ox
98.2 F 85 18 119/60 92
10/18/24 15:13 10/18/24 15:13 10/18/24 15:13 10/18/24 15:13 10/18/24 15:13
I&O
10/17/24 10/18/24 10/19/24
06:59 06:59 06:59
Intake Total 1899 1445 / 1445
Output Total 1170 / 1170 325 / 325
Balance 730 / 840 1120 / 1120
Review of Systems
-
History Source: Patient, Physician (discussed with Dr. Segal) and Coordinated Provider
Constitutional: Denies Fever
EENT: Reports No Symptoms Reported
Respiratory: Reports No Symptoms
Cardiac: Denies Chest Pain
Abdomen/GI: Reports Abdominal Pain (post op) and Constipated
Musculoskeletal: Reports No Symptoms
Physical Exam
-
General: Well Developed, Well Nourished and Pain
HEENT: Normocephalic, Atraumatic, Moist Mucous Membranes and Other (NG tube in place)
Respiratory: Rales (bibasilar rales)
Cardiac: Regular Rhythm and S1/S2
GI: Tender and Distended; Negative Normal Bowel Sounds (absent BS)
Musculoskeletal: No Clubbing, No Cyanosis and No Edema
Neuro: Awake and Alert
[2024-10-19] VITALS (7 sets, daily range): BP systolic 148–170; BP diastolic 74–93; PULSE 80–85; BMI 33.4
[2024-10-19] MEDS: OFIRMEV 100 IV (00:11)
[2024-10-19] MEDS: NSS 1000 IV (03:43)
[2024-10-19] MEDS: PROTONIX 100 IV (03:44)
[2024-10-19] MEDS: ZOSYN 50 IV ×4 (03:44→20:06)
--- NOTE | 2024-10-19 04:39 | DOWNTIME ---
There was a [employer] Client Senior Controls Analyst Downtime on 10/19/2024 from 0200 to 10/19/2024 at 0325 . Downtime documentation of patient's care, including medication administrations, has been reconciled in the electronic record per guidelines. Refer to the
patient's paper chart under the miscellaneous tab to see printed paper medication records and downtime forms.
[2024-10-19 07:30] LABS: % Basophils 0.1 % (0-2); % Eosinophils 0.7 % (0-6); % Immature Granulocytes 0.8 % (0-0.5); % Lymphocytes 16.6 % (20.5-51.1); % Monocytes 4.5 % (1.7-9.3); % Neutrophils 77.3 % (42.2-75.2); Absolute Eosinophils 0.1 10^3/uL (0-0.7); Absolute Immature Granulocytes 0.1 10^3/uL (0-0.05); Absolute Lymphocytes 1.7 10^3/uL (1.2-3.4); Absolute Monocytes 0.5 10^3/uL (0.1-0.6); Hemoglobin 9.5 g/dL (12.0-16.0); Mean Corp Hgb Conc. 32.8 g/dL (33.0-37.0); Mean Corpuscular Hgb 32.2 pg (27.0-31.0); Mean Corpuscular Volume 98.3 fL (81.0-99.0); Mean Platelet Volume 9.1 fL (7.4-10.4); Nucleated Red Blood Cells % 0 %; Platelet Count 245 10^3/uL (130-400); Red Blood Cell Count 2.95 10^6/uL (4.20-5.40); Red Cell Dist. Width 13.2 % (11.5-14.5); White Blood Cell Count 10.3 10^3/uL (4.8-10.8)
[2024-10-19 07:46] LABS: Blood Urea Nitrogen 23 mg/dl (7-17); Calcium 8.2 mg/dl (8.4-10.2); Carbon Dioxide 21 mmol/L (22-30); Chloride 109 mmol/L (98-107); Estimated Creatinine Clearance 40 ml/min; Glucose 85 mg/dl (70-99); Potassium 3.6 mmol/L (3.5-5.1); Sodium 140 mmol/L (135-145); eGFR 49.24
--- NOTE | 2024-10-19 08:30 | W.PN.HOSP.TC ---
Today's Communication/Plan
-
start prn Hydralazine
check Thyroid studies
Assessment / Plan
Assessment / Plan
Pt underwent Rt Total Knee arthroplasty on 10/11. Was dc to home on ASA as DVT prophylaxis.
Onset of mild abd pain on 10/12, shortly after DC, became worse over next several days. Unable to eat. 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
[address] scan of abd: Findings consistent with perforated duodenal ulcer. Extensive free air within the upper abdomen with associated inflammatory stranding. Small volume of free fluid within the pelvis. Trace perihepatic ascites.
Pt seen by DR. Cowan and went to the OR. Post op, BP borderline low, but never required pressors.
She is now Post op day #2 (OR 10/17)
Post op ileus
pt noted small amount of flatus passed
Essential HTN
BP meds are on hold, follow post op BP. BP remains on the low side, currently 155/74
will write for prn Hydralazine
Abn EKG
discussed with Dr. Marquez, he felt only nonspecific ST-T changes and nl QT, discussed, did not believe Cardio consult was indicated, consult cancelled
S/P Rt TKR
Hypothyroid on replacement
will start supplement once NG tube clamped, consider parental if unable to give oral by 10/21. Will check T4/TSH
P:Doing well post op
transfer to tele
follow BP
discussed with Obie BERG regarding post op knee wound dressing. Pt states was to be seen today for removal.
DNR
Anticipated Discharge: > 48 hours
Subjective/Interval History
-
Date of Service: October 19, 2024
Awake, alert, conversant. States has passed some flatus
Objective Data
-
Labs:
Laboratory Results
10/19/24
06:17
WBC 10.3
Hgb 9.5 L
Hct 29.0 L
Plt Count 245
Sodium 140
Potassium 3.6
Chloride 109 H
Carbon Dioxide 21 L
BUN 23 H
Creatinine 1.1 H
Glucose 85
Calcium 8.2 L
Vital Signs:
Vital Signs
Temp Pulse Resp BP Pulse Ox
98.6 F 87 16 155/74 92
10/19/24 07:10 10/19/24 07:10 10/19/24 07:10 10/19/24 07:10 10/19/24 07:10
I&O
10/18/24 10/19/24 10/20/24
06:59 06:59 06:59
Intake Total 1899 1445 / 1445
Output Total 1170 / 1170 325 / 325
Balance 730 / 840 1120 / 1120
Review of Systems
-
History Source: Patient and Coordinated Provider
Constitutional: Reports Fever (100.1 last evening)
EENT: Reports No Symptoms Reported
Respiratory: Reports No Symptoms
Cardiac: Denies Chest Pain
Abdomen/GI: Reports Abdominal Pain (post op) and Constipated
Musculoskeletal: Reports No Symptoms
Neuro: Reports Weakness (feels she is getting weaker)
Physical Exam
-
General: Well Developed, Well Nourished, No Apparent Distress and Conversant
HEENT: Normocephalic, Atraumatic, Moist Mucous Membranes and Other (NG tube in place)
Respiratory: Clear to Auscultation; Negative Wheezes, Rales (rales resolved) or Rhonchi
Cardiac: Regular Rhythm and S1/S2
GI: Tender and Distended; Negative Normal Bowel Sounds (minimal BS LLQ)
Musculoskeletal: No Clubbing, No Cyanosis and No Edema
Neuro: Awake and Alert
Psych: Calm
--- NOTE | 2024-10-19 09:02 | W.PN.GS2 ---
Addendum entered and electronically signed by Fercho Cowan MD 10/19/24 10:10:
Son updated by phone.
Original Note:
Today's Communication / Plan
-
-- Decrease IVF
-- Tentative plan for UGI on POD#3 (10/20)
Assessment / Plan
-
Patient is a 84 yo F p/w perforated gastric ulcer POD#2 s/p exploratory laparotomy, modified Constantino patch repair of gastric ulcer
AVSS
WBC normalized, Cr trending down, baseline CKD
Pain well-controlled, JERMAINE outputs nonbilious.
Recovering well. No major postoperative concerns.
-- NPO, NGT decompression
-- Tentative plan for UGI on POD#3 (10/20)
-- Decrease IVF
-- JERMAINE to remain in place
-- Abx: Zosyn, WBC normalized, no need for fungal coverage at this time, would plan on 7 days treatment
-- Pain control: IV Tylenol and Dilaudid, NO NSAIDs including ASA
-- GI: PPI gtt will transition to PPI BID tomorrow
-- DVT: Lovenox
-- OOB to chair, PT for recent knee TKA
Subjective Data
-
Date of Service: October 19, 2024
No major complaints, bloating irritated by NGT. Denies worsening abdominal pain. No nausea or vomiting. Denies any SOB or chest pain. Low-grade fever yesterday to 100.1, work with I-S. OOB to chair.
Objective Data
-
Intake and Output
10/18/24 10/19/24 10/20/24
06:59 06:59 06:59
Intake Total 1899 1445 / 1445
Output Total 1170 / 1170 325 / 325
Balance 730 / 840 1120 / 1120
Intake:
Oral fluids 0 / 0
IV fluids (Total) 1750 / 1860 1035 / 1035
Normosol 100 / 100
Nss 1,000 ml @ 75 mls/hr IV . 1500 / 1600 525 / 525
[id number] [facility] Rx#:[id number]
Protonix 150 / 160 60 / 60
IV piggybacks 150 / 150 320 / 320
Amount instilled into GI Tube ( 0 / 0 90 /
Total)
[place] Sump 0 / 0 90 / 90
Output:
Drain Output (Total) 160 / 160 65 / 65
Right Abdomen Ramesh-Marcus 160 / 160 65 / 65
Gastrointestinal tube output (
Total)
[place] Sump
Urine, [place] 1010 / 1010
Urine, Voided 250 / 250
Other:
Number of approximated MODERATE 1
amounts of urine
Vital Signs
Temp Pulse Resp BP Pulse Ox
98.6 F 87 16 155/74 92
10/19/24 07:10 10/19/24 07:10 10/19/24 07:10 10/19/24 07:10 10/19/24 07:10
Lab Results
10/19/24 06:17
10/19/24 06:17
Calcium 8.2 mg/dl (8.4-10.2) L 10/19/24 06:17
Total Bilirubin 1.1 mg/dl (0.2-1.3) 10/17/24 07:41
AST 26 U/L (14-36) 10/17/24 07:41
ALT 29 U/L (0-35) 10/17/24 07:41
Alkaline Phosphatase 62 U/L (38-126) 10/17/24 07:41
Total Protein 6.2 g/dl (6.3-8.2) L 10/17/24 07:41
Albumin 3.9 g/dl (3.5-5.0) 10/17/24 07:41
Physical Exam
-
Gen: NAD
HEENT: minimal gastric outputs
Abd: soft, minimal tenderness, ND, non-peritoneal, midline with some shadowing, JERMAINE minimal serosang, non-bilious
[2024-10-19] MEDS: D5/0.45%NSS with KCL 20 MEQ 1000 IV (10:42)
[2024-10-19] MEDS: APRESOLINE 5 MG IV ×2 (12:56→20:05)
--- NOTE | 2024-10-19 16:15 | CM ---
Patient seen at bedside with daughter
Dx: perforated duodenum
post-op Exploratory laparotomy, repair of perforated gastric ulcer with modified Constantino patch repair
NPO, NGT
JERMAINE
PT rec HH
Current with [facility]
PLAN: Discharge when medically stable. [facility] with [facility]
[2024-10-19] MEDS: LOVENOX 40 MG SC (17:06)
[2024-10-19] MEDS: PROTONIX IV 40 MG IV (20:01)
[2024-10-19] MEDS: NSS (PRESERVATIVE FREE) 10 ML IV (20:03)
[2024-10-19] MEDS: FLUSH (NSS) 3 FLUSH IV (20:08)
[2024-10-20] VITALS (7 sets, daily range): BP systolic 136–162; BP diastolic 70–82; BMI 33.3
[2024-10-20] MEDS: OFIRMEV 100 IV (02:08)
[2024-10-20] MEDS: FLUSH (NSS) 2 FLUSH IV ×3 (02:10→03:59)
[2024-10-20] MEDS: ZOSYN 50 IV ×4 (02:38→20:37)
[2024-10-20] MEDS: APRESOLINE 5 MG IV (03:58)
[2024-10-20] MEDS: D5/0.45%NSS with KCL 20 MEQ 1000 IV (06:21)
[2024-10-20] MEDS: NSS (PRESERVATIVE FREE) 10 ML IV ×2 (08:16→20:37)
[2024-10-20] MEDS: PROTONIX IV 40 MG IV ×2 (08:17→20:37)
[2024-10-20] MEDS: FLUSH (NSS) 1 FLUSH IV (08:17)
--- NOTE | 2024-10-20 08:36 | W.PN.GS2 ---
Addendum entered and electronically signed by Madi Mcneill MD 10/20/24 08:50:
Patient seen and examined with surgical GOVERNMENT AFFAIRS FELLOW. Agree with documented progress note.
Postoperative pain controlled
No nausea, NG tube bothersome but tolerating well
Passing flatus; feels like ready to have bowel movement
AF (100.5 Tmax) VSS
NAD AAOx3
ABD: Soft, nondistended, minimal tenderness
Midline incision with occlusive dressing -clean and generally dry
NG tube -scant output in tubing/canister -nonbilious
JERMAINE-serosanguineous fluid, nonbilious
A/P: POD #3 status post ex lap modified Constantino patch repair gastric ulcer
Upper GI swallow today -if clean remove NG tube and start on clear liquid diet
Continue Zosyn day 3 of 7
PPI IV twice daily
Original Note:
Today's Communication / Plan
-
Check UGI
Assessment / Plan
-
Patient is a 84 yo F p/w perforated gastric ulcer POD#3 s/p exploratory laparotomy, modified Constantino patch repair of gastric ulcer
Low grade fever of 100.5 overnight, vitals otherwise stable
WBC normalized previously but await labs from today
Pain well-controlled, JERMAINE outputs nonbilious.
Recovering well overall
Passing flatus
-- UGI today, will hopefully be able to remove NGT pending findings and advance to clears
-- Continue IVF
-- JERMAINE to remain in place
-- Abx: Zosyn, WBC normalized, no need for fungal coverage at this time, would plan on 7 days treatment
-- Pain control: IV Tylenol and Dilaudid, NO NSAIDs including ASA
-- GI: PPI IV BID
-- DVT ppx: Lovenox, scd's
-- OOB to chair, PT for recent knee TKA
Subjective Data
-
Date of Service: October 20, 2024
Patient seen and examined at bedside with Dr. Mcneill. Denies n/v. Passing flatus. Minimal post op pain.
Objective Data
-
Intake and Output
10/19/24 10/20/24 10/21/24
06:59 06:59 06:59
Intake Total 1445 / 1445 1855 / 1855
Output Total 325 / 325 462 / 462
Balance 1120 / 1120 1393 / 1393
Intake:
Oral fluids 0 / 0 0 / 0
IV fluids (Total) 1035 / 1035 1375 / 1375
Nss 1,000 ml @ 75 mls/hr IV . 525 / 525
[id number] [facility] Rx#:[id number]
Protonix 60 / 60
IV piggybacks 320 / 320 300 / 300
Amount instilled into GI Tube ( 90 / 90 180 / 180
Total)
[place] Sump 90 / 90 180 / 180
Output:
Drain Output (Total) 62 / 62
Right Abdomen Ramesh-Marcus 62
Gastrointestinal tube output ( 400 / 400
Total)
[place] Sump 10 10 400 / 400
Urine, Voided 250 / 250
Other:
Number of approximated MODERATE 1 2
amounts of urine
Vital Signs
Temp Pulse Resp BP Pulse Ox
98.6 F 87 16 150/76 94
10/20/24 07:15 10/20/24 07:15 10/20/24 07:15 10/20/24 07:15 10/20/24 07:15
Calcium 8.2 mg/dl (8.4-10.2) L 10/19/24 06:17
Total Bilirubin 1.1 mg/dl (0.2-1.3) 10/17/24 07:41
AST 26 U/L (14-36) 10/17/24 07:41
ALT 29 U/L (0-35) 10/17/24 07:41
Alkaline Phosphatase 62 U/L (38-126) 10/17/24 07:41
Total Protein 6.2 g/dl (6.3-8.2) L 10/17/24 07:41
Albumin 3.9 g/dl (3.5-5.0) 10/17/24 07:41
Physical Exam
-
Gen: NAD
HEENT: minimal gastric outputs
Abd: soft, minimal tenderness, ND, non-peritoneal, midline with some shadowing, JERMAINE minimal serosang, non-bilious
NGT with low volume non-bilious outputs
[2024-10-20 09:20] LABS: Hematocrit 29.2 % (37.0-47.0); Hemoglobin 9.7 g/dL (12.0-16.0); Mean Corp Hgb Conc. 33.2 g/dL (33.0-37.0); Mean Corpuscular Hgb 31.3 pg (27.0-31.0); Mean Corpuscular Volume 94.2 fL (81.0-99.0); Platelet Count 283 10^3/uL (130-400); Red Cell Dist. Width 13.2 % (11.5-14.5); White Blood Cell Count 10.1 10^3/uL (4.8-10.8)
[2024-10-20 10:03] LABS: ALT (SGPT) 19 U/L (0-35); AST (SGOT) 17 U/L (14-36); Alkaline Phosphatase 62 U/L (38-126); Blood Urea Nitrogen 16 mg/dl (7-17); Calcium 8.4 mg/dl (8.4-10.2); Carbon Dioxide 23 mmol/L (22-30); Chloride 108 mmol/L (98-107); Estimated Creatinine Clearance 44 ml/min; Glucose 126 mg/dl (70-99); Potassium 3.4 mmol/L (3.5-5.1); Sodium 140 mmol/L (135-145); Total Bilirubin 0.7 mg/dl (0.2-1.3); Total Protein 5.3 g/dl (6.3-8.2); eGFR 55.21
--- NOTE | 2024-10-20 10:15 | W.PN.HOSP.TC ---
Today's Communication/Plan
-
UGI today, pending results will start scheduled Metoprolol and continue prn Hydralazine
Assessment / Plan
Assessment / Plan
Pt underwent Rt Total Knee arthroplasty on 10/11. Was dc to home on ASA as DVT prophylaxis.
Onset of mild abd pain on 10/12, shortly after DC, became worse over next several days. Unable to eat. 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
CT scan of abd 10/17 on admission: Findings consistent with perforated duodenal ulcer. Extensive free air within the upper abdomen with associated inflammatory stranding. Small volume of free fluid within the pelvis. Trace perihepatic ascites.
Pt seen by DR. Cowan and went to the OR. Post op, BP borderline low, but never required pressors.
She is now Post op day #3 (OR 10/17)
Post op ileus
pt noted having increased amount of flatus passed
Essential HTN
BP meds are on hold, follow post op BP. BP starting to rise.
has received prn Hydralazine. Depending on results of UGI, if pt allowed to take clear liquids, will plan on resuming oral Metoprolol scheduled, if not will order scheduled IV
Abn EKG
discussed with Dr. Marquez, he felt only nonspecific ST-T changes and nl QT, discussed, did not believe Cardio consult was indicated, consult cancelled
S/P Rt TKR
Hypothyroid on replacement
will start supplement once NG tube clamped, consider parental if unable to give oral by 10/21. Will check T4/TSH pending
P:Doing well post op
transfered to tele
follow BP
discussed with Obie BERG regarding post op knee wound dressing. Pt states was to be seen today for removal. Obie relates that someone should be by 10/20 and will evaluate
DNR
Anticipated Discharge: > 48 hours
Subjective/Interval History
-
Date of Service: October 20, 2024
Concerned how she will do in her UGI today
Objective Data
-
Labs:
Laboratory Results
10/20/24
08:15
WBC 10.1
Hgb 9.7 L
Hct 29.2 L
Plt Count 283
Sodium 140
Potassium 3.4 L
Chloride 108 H
Carbon Dioxide 23
BUN 16
Creatinine 1.0
Glucose 126 H
Calcium 8.4
Total Bilirubin 0.7
AST 17
ALT 19
Alkaline Phosphatase 62
Vital Signs:
Vital Signs
Temp Pulse Resp BP Pulse Ox
98.6 F 87 16 150/76 94
10/20/24 07:15 10/20/24 07:15 10/20/24 07:15 10/20/24 07:15 10/20/24 07:15
I&O
10/19/24 10/20/24 10/21/24
06:59 06:59 06:59
Intake Total 1445 / 1445 1855 / 1855
Output Total 325 / 325 462 / 462
Balance 1120 / 1120 1393 / 1393
Review of Systems
-
History Source: Patient and Coordinated Provider
Constitutional: Reports Fever (100.5 last evening)
EENT: Reports No Symptoms Reported
Respiratory: Reports No Symptoms
Cardiac: Denies Chest Pain
Abdomen/GI: Reports Abdominal Pain (post op) and Constipated
Musculoskeletal: Reports No Symptoms
Neuro: Reports Weakness (feels she is getting weaker)
Physical Exam
-
General: Well Developed, Well Nourished, No Apparent Distress and Conversant
HEENT: Normocephalic, Atraumatic, Moist Mucous Membranes and Other (NG tube in place)
Respiratory: Clear to Auscultation; Negative Wheezes, Rales (rales resolved) or Rhonchi
Cardiac: Regular Rhythm and S1/S2
GI: Tender (primarily in LUQ, but overall less tender) and Distended; Negative Normal Bowel Sounds (BS much more active and heard throughout abdomen)
Musculoskeletal: No Clubbing, No Cyanosis and No Edema
Neuro: Awake and Alert
Psych: Calm
--- NOTE | 2024-10-20 11:03 | CM ---
Patient seen at bedside.
NGT
JERMAINE drain
Patient returned from IR
Referral in [facility] for [facility]
PLAN: home, [facility]
[2024-10-20 12:04] LABS: Free T4 1.51 ng/dl (0.78-2.19)
--- NOTE | 2024-10-20 16:07 | PN.CDI ---
CDI
- -
CDI:
Physician Documentation Request
Admit Date: 10/17/24 15:18
Dear Julisa Maurer,
10/17 Patient underwent Exploratory laparotomy, repair of perforated gastric ulcer with modified Constantino patch repair
OR report states 'Visual confirmation of entry into the abdomen was obtained. There was a mild amount of bilious fluid that was encountered and evacuated.....Again, bilious ascitic fluid and contamination were suctioned clear'
Please provide further specificity to the perforated gastric ulcer
Peritonitis was present
Peritonitis not present
Other
Use of terms such as suspected, likely, concern for, or probable (associated with a specific diagnosis that is being evaluated, monitored, or treated as if it exists) are acceptable and can be coded in the inpatient setting, when documented at the
time of discharge.
Thank you,
Sarah Hirsch RN, BSN
CDI Specialist
tiger text
Please use your independent medical judgment in providing your response.
[2024-10-20] MEDS: LOVENOX 40 MG SC (17:08)
[2024-10-21] VITALS (7 sets, daily range): BP systolic 142–165; BP diastolic 71–88; PULSE 95; BMI 33.4
[2024-10-21] MEDS: ZOSYN 50 IV ×4 (02:50→20:05)
[2024-10-21] MEDS: D5/0.45%NSS with KCL 20 MEQ 1000 IV (03:59)
[2024-10-21 07:45] LABS: Hematocrit 29.2 % (37.0-47.0); Hemoglobin 9.5 g/dL (12.0-16.0); Mean Corp Hgb Conc. 32.5 g/dL (33.0-37.0); Mean Corpuscular Hgb 31.8 pg (27.0-31.0); Mean Corpuscular Volume 97.7 fL (81.0-99.0); Mean Platelet Volume 8.9 fL (7.4-10.4); Platelet Count 286 10^3/uL (130-400); Red Blood Cell Count 2.99 10^6/uL (4.20-5.40); Red Cell Dist. Width 13.2 % (11.5-14.5); White Blood Cell Count 8.4 10^3/uL (4.8-10.8)
[2024-10-21 08:22] LABS: Blood Urea Nitrogen 14 mg/dl (7-17); Calcium 8.3 mg/dl (8.4-10.2); Carbon Dioxide 25 mmol/L (22-30); Chloride 108 mmol/L (98-107); Estimated Creatinine Clearance 44 ml/min; Glucose 124 mg/dl (70-99); Potassium 3.6 mmol/L (3.5-5.1); Sodium 140 mmol/L (135-145); eGFR 55.21
--- NOTE | 2024-10-21 08:36 | W.PN.UPDATE ---
Update Note
Progress Note Update
Patient doing very well with regards to her right knee replacement. Dressing was removed today. Incision is clean, dry and intact. Trace effusion noted without warmth or erythema. No palpable pain around the knee. Range of motion 0-120 degrees
without pain. Calf is soft and nontender. Distal neurovascular was intact. New Aquacel placed over incision but may be removed once she gets home and and left open to air. Shower as normal. Continue with formal physical therapy and follow-up
with orthopedics 2 to 3 weeks to check her progress. Lovenox for DVT prophylactics. Orthopedics to sign off for now.
--- NOTE | 2024-10-21 08:39 | W.PN.HOSP.TC ---
Today's Communication/Plan
-
advance diet as per Surgery
slow IVF, but would continue for now
Assessment / Plan
Assessment / Plan
Pt underwent Rt Total Knee arthroplasty on 10/11. Was dc to home on ASA as DVT prophylaxis.
Onset of mild abd pain on 10/12, shortly after DC, became worse over next several days. Unable to eat. 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
CT scan of abd 10/17 on admission: Findings consistent with perforated duodenal ulcer. Extensive free air within the upper abdomen with associated inflammatory stranding. Small volume of free fluid within the pelvis. Trace perihepatic ascites.
Pt seen by DR. Cowan and went to the OR. Post op, BP borderline low, but never required pressors.
She is now Post op day #4 (OR 10/17)
WBC 8.4/Hgb 9.5
Underwent UGI 10/20: No leak status post gastroduodenal ulcer repair.
Post op ileus
appears to be resolving
Essential HTN
BP creeping up, has been off her antiHTN Rx since surgery and though pt states was taking preop, unclear how regularly.
Will resume scheduled Metoprolol XL at reduced dose (50mg bid) and continue prn IV Hydralazine
Abn EKG
discussed with Dr. Marquez, he felt only nonspecific ST-T changes and nl QT, discussed, did not believe Cardio consult was indicated, consult cancelled
S/P Rt TKR
mild hypokalemia
3.4-->3.6
better
Hypothyroid on replacement
10/20 TSH 2.6/free T4 1.51
will resume preadmit dose
Rt TKR
doing well, seen by Obie Bowden this morning, wound eval and dressing changed
P:Doing well post op
transferred to tele
follow BP
advance diet as per Surg
Will slow IVF, but would not stop until taking adequate oral intake
DNR
Anticipated Discharge: > 48 hours
Subjective/Interval History
-
Date of Service: October 21, 2024
Awake, alert. Does not like full liquids and not consuming much
Objective Data
-
Labs:
Laboratory Results
10/21/24
06:29
WBC 8.4
Hgb 9.5 L
Hct 29.2 L
Plt Count 286
Sodium 140
Potassium 3.6
Chloride 108 H
Carbon Dioxide 25
BUN 14
Creatinine 1.0
Glucose 124 H
Calcium 8.3 L
Vital Signs:
Vital Signs
Temp Pulse Resp BP Pulse Ox
98.3 F 92 17 165/88 94
10/21/24 07:03 10/21/24 07:03 10/21/24 07:03 10/21/24 07:03 10/21/24 07:03
I&O
10/20/24 10/21/24 10/22/24
06:59 06:59 06:59
Intake Total 1855 / 1855 1480 / 1480
Output Total 462 / 462 50 / 50
Balance 1393 / 1393 1430 / 1430
Review of Systems
-
History Source: Patient and Coordinated Provider
Constitutional: Reports Fever (100.4 this morning)
EENT: Reports No Symptoms Reported
Respiratory: Reports No Symptoms
Cardiac: Denies Chest Pain
Abdomen/GI: Reports Abdominal Pain (post op, slowly lessening); Denies Constipated (passing freq stools, a lot of flatus)
Musculoskeletal: Reports No Symptoms
Neuro: Reports Weakness (working with physical therapy, sitting in chair this morning)
Physical Exam
-
General: Well Developed, Well Nourished, No Apparent Distress and Conversant
HEENT: Normocephalic, Atraumatic, Moist Mucous Membranes and Other (NG tube in place)
Respiratory: Clear to Auscultation; Negative Wheezes, Rales (rales resolved) or Rhonchi
Cardiac: Regular Rhythm and S1/S2
GI: Normal Bowel Sounds (BS much more active and heard throughout abdomen) and Tender (primarily in LUQ, but overall less tender); Negative Distended (resolved)
Musculoskeletal: No Clubbing, No Cyanosis and No Edema
Neuro: Awake and Alert
Psych: Calm
[2024-10-21] MEDS: NSS (PRESERVATIVE FREE) 10 ML IV ×2 (08:47→20:04)
[2024-10-21] MEDS: PROTONIX IV 40 MG IV ×2 (08:47→20:04)
[2024-10-21] MEDS: TOPROL XL 50 MG PO ×2 (08:47→20:04)
[2024-10-21] MEDS: FLUSH (NSS) 2 FLUSH IV ×2 (08:49→13:41)
--- NOTE | 2024-10-21 13:03 | W.PN.GS2 ---
Addendum entered and electronically signed by Frandy Elaine MD 10/21/24 23:28:
I saw and examined the patient.
The COMPETITIVE ATHLETE's note was reviewed and I agree with the note.
Original Note:
Today's Communication / Plan
-
ADAT
Continue ABX
Assessment / Plan
-
Patient is a 84 yo F p/w perforated gastric ulcer with noted peritonitis POD#4 s/p exploratory laparotomy, modified Constantino patch repair of gastric ulcer
AFVSS, low grade temp of 100.4
WBC normalized previously but await labs from today
Pain well-controlled, JERMAINE outputs nonbilious.
Recovering well overall
Acute anemia present but stable. Secondary to GIB from ulcer, hemodilution and expected operative losses.
Passing flatus/stools
UGI on 10/20 WNL
-- Continue FLD, will advance to LRD later today if continues to tolerate
-- Continue IVF
-- JERMAINE to remain in place
-- Abx: Zosyn (day 4/7 of abx) WBC normalized, no need for fungal coverage at this time, would plan on 7 days treatment
-- Pain control: IV Tylenol and oxycodone, NO NSAIDs including ASA
-- GI: PPI IV BID (will conver to PO upon d/c)
-- DVT ppx: Lovenox, scd's
-- OOB to chair, PT for recent knee TKA
Subjective Data
-
Date of Service: October 21, 2024
Patient seen and examined at bedside with Dr. Elaine. OOB to chair. tolerating FLD. Some upper abdominal tightness but pain well controlled. Denies n/v. Passing flatus, had 3 BM's early this am
Objective Data
-
Intake and Output
10/20/24 10/21/24 10/22/24
06:59 06:59 06:59
Intake Total 1855 / 1855 1480 / 1480
Output Total 462 / 462 50 / 50
Balance 1393 / 1393 1430 / 1430
Intake:
Oral fluids 0 / 0 780 / 780
IV fluids (Total) 1375 / 1375 500 / 500
IV piggybacks 300 / 300 200 / 200
Amount instilled into GI Tube ( 180 / 180
Total)
[place] Sump 180 / 180
Output:
Drain Output (Total) 50 / 50
Right Abdomen Ramesh-Marcus 50 / 50
Gastrointestinal tube output ( 400 / 400
Total)
[place] Sump 400 / 400
Other:
Number of approximated MODERATE 2 2
amounts of urine
Number of unmeasured liquid
stools
Rectum 6
Vital Signs
Temp Pulse Resp BP Pulse Ox
98.2 F 78 17 150/74 96
10/21/24 10:57 10/21/24 10:57 10/21/24 10:57 10/21/24 10:57 10/21/24 10:57
Lab Results
10/21/24 06:29
10/21/24 06:29
Calcium 8.3 mg/dl (8.4-10.2) L 10/21/24 06:29
Total Bilirubin 0.7 mg/dl (0.2-1.3) 10/20/24 08:15
AST 17 U/L (14-36) 10/20/24 08:15
ALT 19 U/L (0-35) 10/20/24 08:15
Alkaline Phosphatase 62 U/L (38-126) 10/20/24 08:15
Total Protein 5.3 g/dl (6.3-8.2) L 10/20/24 08:15
Albumin 3.0 g/dl (3.5-5.0) L 10/20/24 08:15
Physical Exam
-
Gen: NAD
Abd: soft, minimal tenderness, ND, non-peritoneal, midline with some shadowing, JERMAINE minimal serosang, non-bilious
[2024-10-21] MEDS: SYNTHROID 25 MCG PO (13:41)
--- NOTE | 2024-10-21 14:42 | PTCARENOTE ---
Pt with c/o of frequent liq BM's. PT has been on full liquids and gama well. Low residue for dinner.
[2024-10-21] MEDS: LOVENOX 40 MG SC (17:49)
[2024-10-22] MEDS: ZOSYN 50 IV ×4 (02:17→20:00)
[2024-10-22] MEDS: D5/0.45%NSS with KCL 20 MEQ 1000 IV (02:29)
[2024-10-22 05:24] VITALS: BMI 33.8
[2024-10-22] MEDS: SYNTHROID 25 MCG PO (05:36)
[2024-10-22 05:56] LABS: % Basophils 0.3 % (0-2); % Immature Granulocytes 1.5 % (0-0.5); % Monocytes 7.9 % (1.7-9.3); % Neutrophils 61.3 % (42.2-75.2); Absolute Eosinophils 0.2 10^3/uL (0-0.7); Absolute Immature Granulocytes 0.1 10^3/uL (0-0.05); Absolute Lymphocytes 1.9 10^3/uL (1.2-3.4); Absolute Monocytes 0.6 10^3/uL (0.1-0.6); Absolute Neutrophils 4.5 10^3/uL (1.4-6.5); Hematocrit 27.9 % (37.0-47.0); Hemoglobin 9.2 g/dL (12.0-16.0); Mean Corpuscular Hgb 31.5 pg (27.0-31.0); Mean Corpuscular Volume 95.5 fL (81.0-99.0); Mean Platelet Volume 9.1 fL (7.4-10.4); Nucleated Red Blood Cells % 0 %; Platelet Count 296 10^3/uL (130-400); Red Blood Cell Count 2.92 10^6/uL (4.20-5.40); Red Cell Dist. Width 13.2 % (11.5-14.5); White Blood Cell Count 7.3 10^3/uL (4.8-10.8)
[2024-10-22 06:18] LABS: Blood Urea Nitrogen 12 mg/dl (7-17); Calcium 8.4 mg/dl (8.4-10.2); Carbon Dioxide 22 mmol/L (22-30); Chloride 108 mmol/L (98-107); Estimated Creatinine Clearance 44 ml/min; Glucose 115 mg/dl (70-99); Potassium 3.6 mmol/L (3.5-5.1); Sodium 139 mmol/L (135-145); eGFR 55.21
[2024-10-22 07:00] VITALS: BP 123/74
[2024-10-22] MEDS: NSS (PRESERVATIVE FREE) 10 ML IV ×2 (08:33→20:00)
[2024-10-22] MEDS: PROTONIX IV 40 MG IV ×2 (08:33→20:00)
[2024-10-22] MEDS: TOPROL XL 50 MG PO ×2 (08:33→20:00)
[2024-10-22] MEDS: FLUSH (NSS) 2 FLUSH IV ×2 (08:35→14:12)
--- NOTE | 2024-10-22 10:00 | W.PN.HOSP.TC ---
Addendum entered and electronically signed by Brenden Alvarado MD 10/22/24 10:11:
As per Dr. Cowan, was a perforated gastric ulcer
Mild contact rash on back has lessened
Original Note:
Today's Communication/Plan
-
DC IVF
hold going back on prior anti-HTN and follow BP
Assessment / Plan
Assessment / Plan
Pt underwent Rt Total Knee arthroplasty on 10/11. Was dc to home on ASA as DVT prophylaxis.
Onset of mild abd pain on 10/12, shortly after DC, became worse over next several days. Unable to eat. 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
[address] scan of abd 10/17 on admission: Findings consistent with perforated duodenal ulcer. Extensive free air within the upper abdomen with associated inflammatory stranding. Small volume of free fluid within the pelvis. Trace perihepatic ascites.
Pt seen by DR. Cowan and went to the OR. Post op, BP borderline low, but never required pressors.
She is now Post op day #5 (OR 10/17)
WBC 7.3/Hgb 9.2
Underwent UGI 10/20: No leak status post gastroduodenal ulcer repair.
diet then advanced, now on low residue. Diet improved, will stop IVF
Post op ileus
appears to be resolving
Essential HTN
BP creeping up, has been off her antiHTN Rx since surgery and though pt states was taking preop, unclear how regularly.
resumed scheduled Metoprolol XL at reduced dose (50mg bid) and continue prn IV Hydralazine. BP 123/74. Would not yet resume prior Toprol, Losartan or HCTZ. Follow BP and resume cautiously
Abn EKG
discussed with Dr. Marquez, he felt only nonspecific ST-T changes and nl QT, discussed, did not believe Cardio consult was indicated, consult cancelled
S/P Rt TKR
mild hypokalemia
3.4-->3.6-->3.6
better
Hypothyroid on replacement
10/20 TSH 2.6/free T4 1.51
will resume preadmit dose
Rt TKR
doing well, seen by Obie Bowden 10/21 morning, wound eval and dressing changed
P:Doing well post op
transferred to tele
follow BP
advance diet as per Surg
Discussed with pt going to a SNF until fully ambulatory. She continues to decline. Recommend as alternative, 24 hr home health aides for at least the first week back home, she appears resistant, but will consider
DNR
Anticipated Discharge: 24 - 48 hours
Subjective/Interval History
-
Date of Service: October 22, 2024
Awake, alert, conversant. Still having freq BM's
Objective Data
-
Labs:
Laboratory Results
10/22/24
05:17
WBC 7.3
Hgb 9.2 L
Hct 27.9 L
Plt Count 296
Sodium 139
Potassium 3.6
Chloride 108 H
Carbon Dioxide 22
BUN 12
Creatinine 1.0
Glucose 115 H
Calcium 8.4
Vital Signs:
Vital Signs
Temp Pulse Resp BP Pulse Ox
98.2 F 85 17 123/74 94
10/22/24 07:00 10/22/24 07:00 10/22/24 07:00 10/22/24 07:00 10/22/24 08:00
I&O
10/21/24 10/22/24 10/23/24
06:59 06:59 06:59
Intake Total 1480 / 1480 640 / 640
Output Total 50 / 50 80 / 80 10 / 10
Balance 1430 / 1430 560 / 560 -10 / -10
Review of Systems
-
History Source: Patient and Coordinated Provider
Constitutional: Reports Fever (100.4 this morning @03:28)
EENT: Reports No Symptoms Reported
Respiratory: Reports No Symptoms
Cardiac: Denies Chest Pain
Abdomen/GI: Reports Abdominal Pain (post op, slowly lessening) and Diarrhea (freq loose stools); Denies Constipated (resolved)
Musculoskeletal: Reports No Symptoms
Neuro: Reports Weakness (working with physical therapy, sitting in chair this morning, she states this is doing better)
Physical Exam
-
General: Well Developed, Well Nourished, No Apparent Distress and Conversant
HEENT: Normocephalic, Atraumatic, Moist Mucous Membranes and Other (NG tube in place)
Respiratory: Clear to Auscultation; Negative Wheezes, Rales (rales resolved) or Rhonchi
Cardiac: Regular Rhythm and S1/S2
GI: Normal Bowel Sounds (BS much more active and heard throughout abdomen) and Tender (primarily in LUQ, but overall less tender); Negative Distended (resolved)
Musculoskeletal: No Clubbing, No Cyanosis and No Edema
Neuro: Awake and Alert
Psych: Calm
--- NOTE | 2024-10-22 10:45 | W.PN.GS2 ---
Addendum entered and electronically signed by Frandy Elaine MD 10/22/24 18:25:
I saw and examined the patient.
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
�Okay for DC from surgical standpoint once medically clear
Original Note:
Today's Communication / Plan
-
Continue abx
Assessment / Plan
-
Patient is a 84 yo F p/w perforated gastric ulcer with noted peritonitis POD#5 s/p exploratory laparotomy, modified Constantino patch repair of gastric ulcer
AFVSS
WBC normalized
H/H stable
Pain well-controlled, JERMAINE outputs nonbilious.
Recovering well overall
UGI on 10/20 WNL
Tolerating diet
-- LRD
-- JERMAINE removed at bedside
-- Abx: Zosyn (day 5/7 of abx), OK to transition to PO upon discharge
-- Pain control: IV Tylenol and oxycodone, NO NSAIDs including ASA
-- GI: PPI IV BID (will convert to PO upon d/c)
-- DVT ppx: Lovenox, scd's
-- OOB to chair, PT for recent knee TKA
Clear for d/c from surgical standpoint, final dispo as per medical team
Subjective Data
-
Date of Service: October 22, 2024
Patient seen and examined at bedside. OOB to chair. Denies n/v. Tolerating diet. Minimal post op discomfort. Tolerating diet. Passing stools initially liquid but now more solid.
Objective Data
-
Intake and Output
10/21/24 10/22/24 10/23/24
06:59 06:59 06:59
Intake Total 1480 / 1480 640 / 640
Output Total 50 / 50 80 / 80 10 / 10
Balance 1430 / 1430 560 / 560 -10 / -10
Intake:
Oral fluids 780 / 780 540 / 540
IV fluids (Total) 500 / 500
IV piggybacks 200 / 200 100 / 100
Output:
Drain Output (Total) 50 / 50 80 / 80 10 / 10
Right Abdomen Ramesh-Marcus 50 / 50 80 / 80 10 10
Other:
Number of approximated MODERATE 2 3
amounts of urine
Number of unmeasured liquid
stools
Rectum 6
Vital Signs
Temp Pulse Resp BP Pulse Ox
98.2 F 85 17 123/74 94
10/22/24 07:00 10/22/24 07:00 10/22/24 07:00 10/22/24 07:00 10/22/24 08:00
Lab Results
10/22/24 05:17
10/22/24 05:17
Calcium 8.4 mg/dl (8.4-10.2) 10/22/24 05:17
Total Bilirubin 0.7 mg/dl (0.2-1.3) 10/20/24 08:15
AST 17 U/L (14-36) 10/20/24 08:15
ALT 19 U/L (0-35) 10/20/24 08:15
Alkaline Phosphatase 62 U/L (38-126) 10/20/24 08:15
Total Protein 5.3 g/dl (6.3-8.2) L 10/20/24 08:15
Albumin 3.0 g/dl (3.5-5.0) L 10/20/24 08:15
Physical Exam
-
Gen: NAD
Abd: soft, minimal tenderness, ND, non-peritoneal, midline incision with intact cristina, JERMAINE minimal serosang, non-bilious
[2024-10-22 11:08] VITALS: BP 136/64
[2024-10-22 15:29] VITALS: BP 141/76
[2024-10-22] MEDS: LOVENOX 40 MG SC (17:14)
[2024-10-22 19:05] VITALS: BP 158/76
[2024-10-22 23:55] VITALS: BP 152/83
[2024-10-23] MEDS: ZOSYN 50 IV ×3 (02:14→13:43)
[2024-10-23 03:44] VITALS: BP 141/64
[2024-10-23] MEDS: SYNTHROID 25 MCG PO (05:24)
[2024-10-23 05:29] VITALS: BMI 33.7
[2024-10-23 07:20] VITALS: BP 143/75
[2024-10-23] MEDS: COZAAR 100 MG PO (08:11)
[2024-10-23] MEDS: TOPROL XL 50 MG PO (08:11)
[2024-10-23] MEDS: PROTONIX 40 MG PO (08:11)
[2024-10-23 08:37] LABS: % Basophils 0.4 % (0-2); % Eosinophils 1.7 % (0-6); % Immature Granulocytes 1.3 % (0-0.5); % Monocytes 7.7 % (1.7-9.3); % Neutrophils 62.9 % (42.2-75.2); Absolute Eosinophils 0.1 10^3/uL (0-0.7); Absolute Immature Granulocytes 0.1 10^3/uL (0-0.05); Absolute Monocytes 0.6 10^3/uL (0.1-0.6); Absolute Neutrophils 4.7 10^3/uL (1.4-6.5); Hematocrit 30.2 % (37.0-47.0); Hemoglobin 9.9 g/dL (12.0-16.0); Mean Corp Hgb Conc. 32.8 g/dL (33.0-37.0); Mean Corpuscular Hgb 31.5 pg (27.0-31.0); Mean Corpuscular Volume 96.2 fL (81.0-99.0); Mean Platelet Volume 8.8 fL (7.4-10.4); Nucleated Red Blood Cells % 0 %; Platelet Count 312 10^3/uL (130-400); Red Blood Cell Count 3.14 10^6/uL (4.20-5.40); Red Cell Dist. Width 13.2 % (11.5-14.5); White Blood Cell Count 7.5 10^3/uL (4.8-10.8)
[2024-10-23 08:48] LABS: Blood Urea Nitrogen 9 mg/dl (7-17); Calcium 8.4 mg/dl (8.4-10.2); Carbon Dioxide 23 mmol/L (22-30); Chloride 107 mmol/L (98-107); Estimated Creatinine Clearance 49 ml/min; Glucose 115 mg/dl (70-99); Potassium 3.4 mmol/L (3.5-5.1); Sodium 138 mmol/L (135-145); eGFR > 60.00
--- NOTE | 2024-10-23 09:33 | W.PN.GS2 ---
Today's Communication / Plan
-
Dispo planning
Assessment / Plan
-
Patient is a 84 yo F p/w perforated gastric ulcer with noted peritonitis POD#6 s/p exploratory laparotomy, modified Constantino patch repair of gastric ulcer. Doing well, expected postoperative course. Upper GI 12/ without leak, patient advance to a
low residue diet and tolerating it well.
-- Abx: Zosyn (day 6/7 of abx), OK to transition to PO upon discharge
-- Pain control: IV Tylenol and oxycodone, NO NSAIDs including ASA
-- GI: PPI IV BID (will convert to PO upon d/c)
-- DVT ppx: Lovenox, scd's
-- OOB to chair, PT for recent knee TKA
Clear for d/c from surgical standpoint, final dispo as per medical team
Time Spent
Total Time Spent with Patient (in minutes): 15
Subjective Data
-
Date of Service: October 23, 2024
Interval Events:
No acute events overnight. Slept well. Pain Controlled. Denies Nausea/Vomiting, +bowel function. Tolerating diet.
Objective Data
-
Intake and Output
10/22/24 10/23/24 10/24/24
06:59 06:59 06:59
Intake Total 640 / 640 1789 / 1789
Output Total 80 / 80
Balance 560 / 560 1780 / 178
Intake:
Oral fluids 540 / 540 1740 / 1740
IV piggybacks 100 / 100 50 / 50
Output:
Drain Output (Total) 80 / 80
Right Abdomen Ramesh-Marcus 80 / 80
Other:
Number of approximated MODERATE 3 3
amounts of urine
Number of approximated LARGE 5
amounts of urine
Number of unmeasured liquid
stools
Rectum 6
Vital Signs
Temp Pulse Resp BP Pulse Ox
98.4 F 85 16 143/75 95
10/23/24 07:20 10/23/24 07:20 10/23/24 07:20 10/23/24 07:20 10/23/24 07:20
Lab Results
10/23/24 08:27
10/23/24 08:27
Calcium 8.4 mg/dl (8.4-10.2) 10/23/24 08:27
Total Bilirubin 0.7 mg/dl (0.2-1.3) 10/20/24 08:15
AST 17 U/L (14-36) 10/20/24 08:15
ALT 19 U/L (0-35) 10/20/24 08:15
Alkaline Phosphatase 62 U/L (38-126) 10/20/24 08:15
Total Protein 5.3 g/dl (6.3-8.2) L 10/20/24 08:15
Albumin 3.0 g/dl (3.5-5.0) L 10/20/24 08:15
Physical Exam
-
GENERAL/NEURO: Awake, Alert, no distress
CHEST: Unlabored breathing on RA
ABDOMEN: Soft, Non-Tender, Non-Distended, incision clean dry and intact with cristina.
--- NOTE | 2024-10-23 10:51 | W.PN.HOSP.TC ---
Addendum entered and electronically signed by Ceferino Guevara MD 10/23/24 14:22:
Patient received Lovenox teaching this morning. Will also get Lovenox later today while RN present and if comfortable then will be discharged home
Time of discharge 39 minutes
Original Note:
Today's Communication/Plan
-
monitor vitals
see plan
lovenox teaching; if comfortable taking it then dc home
hgb stable
restart losartan
spoke with daughter over the phone; patient does not want rehab
replete K
Assessment / Plan
Assessment / Plan
Pt underwent Rt Total Knee arthroplasty on 10/11. Was dc to home on ASA as DVT prophylaxis.
Onset of mild abd pain on 10/12, shortly after DC, became worse over next several days. Unable to eat. Last BM prior to admission was 5 days [employer]
CT scan of abd 10/17 on admission: Findings consistent with perforated duodenal ulcer. Extensive free air within the upper abdomen with associated inflammatory stranding. Small volume of free fluid within the pelvis. Trace perihepatic ascites.
Pt seen by DR. Cowan and went to the OR. Post op, BP borderline low, but never required pressors.
She is now Post op day #6 (OR 10/17)
Underwent UGI 10/20: No leak status post gastroduodenal ulcer repair.
diet then advanced, now on low residue. Diet improved, oFF ivf
cannot do ASA any more; with recent knee surgery; added lovenox. lovenox teaching today. if comfortable then can go home
Post op ileus
appears to be resolving
Essential HTN
BP creeping up, has been off her antiHTN Rx since surgery and though pt states was taking preop, unclear how regularly.
resumed scheduled Metoprolol XL at reduced dose (50mg bid) and continue prn IV Hydralazine. BP 123/74. resume losartan; hold HCTZ for now. Follow BP and resume cautiously
Abn EKG
Dr Alvarado discussed with Dr. Marquez, he felt only nonspecific ST-T changes and nl QT, discussed, did not believe Cardio consult was indicated, consult cancelled
S/P Rt TKR
hypokalemia
replete
Hypothyroid on replacement
10/20 TSH 2.6/free T4 1.51
cw synthroid
Rt TKR
doing well, seen by Obie Bowden 10/21 morning, wound eval and dressing changed
P:Doing well post op
transferred to tele
follow BP
advance diet as per Surg
Discussed with pt going to a SNF until fully ambulatory. She continues to decline. Recommend as alternative, 24 hr home health aides for at least the first week back home, she appears resistant, but will consider
DNR
General: Well Developed, Well Nourished, No Apparent Distress and Conversant
HEENT: Normocephalic, Atraumatic, Moist Mucous Membranes
Respiratory: Clear to Auscultation; Negative Wheezes
Cardiac: Regular Rhythm and S1/S2
GI: Normal Bowel Sounds, non Tender
Musculoskeletal: No Edema
Neuro: Awake and Alert
Psych: Calm
Anticipated Discharge: Today
Subjective/Interval History
-
Date of Service: October 23, 2024
Denies pain
Objective Data
-
Labs:
Laboratory Results
10/23/24
08:27
WBC 7.5
Hgb 9.9 L
Hct 30.2 L
Plt Count 312
Sodium 138
Potassium 3.4 L
Chloride 107
Carbon Dioxide 23
BUN 9
Creatinine 0.9
Glucose 115 H
Calcium 8.4
Vital Signs:
Vital Signs
Temp Pulse Resp BP Pulse Ox
98.4 F 85 16 143/75 95
10/23/24 07:20 10/23/24 07:20 10/23/24 07:20 10/23/24 07:20 10/23/24 07:20
I&O
10/22/24 10/23/24 10/24/24
06:59 06:59 06:59
Intake Total 640 / 640 1789
Output Total 80 / 80
Balance 560 / 560 1779
[2024-10-23 11:04] VITALS: BP 149/72
[2024-10-23] MEDS: KCL 20 MEQ PO (11:08)
--- NOTE | 2024-10-23 14:08 | CM ---
Patient seen at bedside.
Notified [facility] liaison [facility] regarding discharge.
Notified her she will be on Lovenox-nursing to start teaching before d/c today.
Does not want SNF
PT rec HH
IMM explained. Verbalizes understanding.
[facility]AN[facility]
--- NOTE | 2024-10-23 14:10 | VNURNOTE ---
[facility] liaison spoke with patient, confirmed she would like to resume [facility] services. Resumption referral accepted in [facility]. [facility] intake notified.
--- NOTE | 2024-10-23 14:20 | W.DCSUMMARY ---
Discharge Summary
Discharge Data
Date of Admission: 10/17/24
Date of Discharge: 10/23/24
-
Pending Results: No
Hospital Course
84-year-old female with recent right total knee arthroplasty, hypothyroidism, essential hypertension came to the hospital with abdominal pain known to have perforated duodenal ulcer. Patient was taken to the OR by surgery. Patient tolerated
procedure well and was monitored postop. Postop patient developed ileus which continue to improve. Patient was able to tolerate low residue diet prior to discharge. On this hospitalization her blood pressure was not very high so her medications
were titrated. Given recent knee surgery she was on full dose aspirin which was discontinued given duodenal ulcer. Instead she was started on Lovenox for DVT prophylaxis. Prior to discharge, she was given Lovenox teaching. Once her symptoms
continue to improve and her hemoglobin was stable, she was then discharged home with instructions to follow-up with all her physicians outpatient. She was instructed to follow-up closely with orthopedics for duration of anticoagulation for DVT
prophylaxis.
Discharge Plan
-
Patient Disposition: Home with Home Care
Discharge Diagnosis/Procedures: Perforated duodenal ulcer status post open repair perforated gastric ulcer
Recent right total knee arthroplasty
Postop ileus
Essential hypertension
Condition: Fair
Diet: As tolerated
Additional Diets: Avoid large meals
Activity: As tolerated and No strenuous activity
Additional Activity: Do not lift over 15lbs for the next 4-6 weeks
Driving Restrictions: As prior to admission
Bathing Restrictions: None
Wound Care: Putnam will be removed 2-3 weeks after your surgery at your surgeon's office. Cover site with dry gauze as needed to prevent pulling or tugging.
Cover the site where your drain was with a dry gauze dressing or large bandage and change daily and as needed. Once a scab forms and drainage no longer present, you do not need to cover the wound any longer with a dressing.
Activity Restrictions/Additional Instructions:
Call for fevers (>100.5), worsening abdominal pain, nausea, vomitting
Continue Lovenox until instructed to take by orthopedics for DVT prophylaxis given your recent knee surgery. Please follow-up with orthopedics for final duration.
Do not consume alcohol until instructed by your primary care provider and surgeon
Referrals:
Fercho Cowan MD [Active] - in one to two weeks
Shirley Moreno MD [Family Provider] - in less than 1 week
Brock Ross MD [Active] - in one to two weeks
Additional Discharge Medication Instructions: You had a gastric ulcer which perforated through your stomach. Do not take drink alcohol or take NSAIDs (Aspirin, ibuprofen, naproxen, etc) as these can cause recurrence. Over the counter Tylenol is
recommended for pain. You will need to be on a PPI or antacid medication, take this as prescribed.
Prescriptions:
New
metoprolol succinate 50 mg Tablet Extended Release 24 Hr
50 mg PO BID Qty: 60 0RF
pantoprazole 40 mg Tablet,Delayed Release (Dr/Ec)
40 mg PO BID Qty: 60 0RF
amoxicillin-pot clavulanate 875-125 mg tablet
1 tab PO BID 2 Days Qty: 4 0RF
enoxaparin [Lovenox] 40 mg/0.4 mL syringe
40 mg SC DAILY Qty: 4 1RF
Continued
levothyroxine 25 MCG tablet
25 mcg PO DAILY
hydrochlorothiazide 12.5 MG tablet
12.5 mg PO BID
losartan 50 MG tablet
100 mg PO DAILY Qty: 0 0RF
cholecalciferol (vitamin D3) [Vitamin D3] 25 mcg (1,000 unit) Tablet
25 mcg PO DAILY
calcium carbonate 500 mg calcium (1,250 mg) Tablet
1,000 mg PO DAILY
chromium picolinate 400 mcg Tablet
800 mcg PO DAILY
sennosides [Senokot] 8.6 mg tablet
17.2 mg PO BID Qty: 2 0RF
docusate sodium [Colace] 100 mg capsule
100 mg PO BID Qty: 1 0RF
oxycodone 5 mg tablet
5 mg PO Q6H PRN (Reason: 1 tab moderate pain, 2 tabs severe pain) Qty: 30 0RF
cyanocobalamin (vitamin B-12) 1,000 mcg Tablet
1,000 mcg PO DAILY
magnesium hydroxide [Milk of Magnesia] 400 mg/5 mL suspension
30 ml PO HSPRN PRN (Reason: Constipation)
ondansetron 4 mg tablet,disintegrating
4 mg PO Q6HPRN PRN (Reason: nausea)
acetaminophen 500 mg capsule
1,000 mg PO QIDPRN PRN (Reason: mild pain)
Discontinued
metoprolol succinate 50 mg Tablet Extended Release 24 Hr
50 mg PO HS
metoprolol succinate 100 mg Tablet Extended Release 24 Hr
100 mg PO DAILY
aspirin 325 mg tablet
325 mg PO DAILY Qty: 1 0RF
Discharge Orders:
Discharge Patient (As Directed); Ordered 10/23/24
Ordered By: Ceferino Guevara
Discharge Date and Time
Discharge Date/Time: 10/23/24 17:04
Print Language: SAMI
[2024-10-23 15:41] VITALS: BP 148/82
[2024-10-23] MEDS: LOVENOX 40 MG SC (15:55)
--- NOTE | 2024-10-23 16:19 | PTCARENOTE ---
Lovenox teaching done w/ pt and demonstrated understanding by injecting self w/ her dose here. Pt also has lovenox box to take home w/ instructions and sharps container.
== END 2024-10-23 17:04 | disposition home health service (06) | DRG 326 ==
LOC: 2 NORTH 15:18
PROVIDERS: Physician Assistant; Registered Nurse; ADMITTING PHYSICIAN Internal Medicine; ATTENDING PHYSICIAN Internal Medicine; CONSULT PHYSICIAN Internal Medicine Critical Care Medicine; CONSULT PHYSICIAN Surgery; EMERGENCY PHYSICIAN Emergency Medicine; FAMILY PHYSICIAN Internal Medicine
PROC: 0DQ60ZZ Repair Stomach, Open Approach (ICD-10-PCS; 2024-10-17)
DX: K25.5 Chronic or unspecified gastric ulcer with perforation (principal); K65.9 Peritonitis, unspecified; K91.89 Other postprocedural complications and disorders of digestive system; K56.7 Ileus, unspecified; I12.9 Hypertensive chronic kidney disease with stage 1 through stage 4 chronic kidney disease, or unspecified chronic kidney disease; N18.9 Chronic kidney disease, unspecified; E03.9 Hypothyroidism, unspecified; D64.9 Anemia, unspecified; K21.9 Gastro-esophageal reflux disease without esophagitis; E87.6 Hypokalemia; E66.9 Obesity, unspecified; Z96.651 Presence of right artificial knee joint; Z87.891 Personal history of nicotine dependence; Z79.899 Other long term (current) drug therapy; Z79.890 Hormone replacement therapy; Z79.82 Long term (current) use of aspirin; Z66 Do not resuscitate; Z96.641 Presence of right artificial hip joint; Y83.8 Other surgical procedures as the cause of abnormal reaction of the patient, or of later complication, without mention of misadventure at the time of the procedure; Z68.33 Body mass index [BMI] 33.0-33.9, adult
CPT/HCPCS: 71045; 74177; 74240; 80048; 80053; 83605; 83690; 84439; 84443; 85025; 85027; 85610; 85730; 87040; 93005; 96365; 96375; 97110; 97116; 97163; 97167; 97530; 99291; Q9967

== ENCOUNTER → 2024-12-04 11:09 | Outpatient (REF) | payer OTHER, SELFPAY | LOC: HWRCS 11:09 | PROVIDERS: ATTENDING PHYSICIAN Nuclear Medicine Nuclear Cardiology; FAMILY PHYSICIAN Internal Medicine | DX: I10 Essential (primary) hypertension (principal); R06.02 Shortness of breath; E78.2 Mixed hyperlipidemia; I34.0 Nonrheumatic mitral (valve) insufficiency | CPT/HCPCS: 93306 ==

== ENCOUNTER 2025-01-05 06:35 | Day surgery (SDC) | payer OTHER, SELFPAY | END 2025-01-05 11:44 | disposition home or self-care (01) | LOC: GI 06:35 | PROVIDERS: ATTENDING PHYSICIAN Student in an Organized Health Care Education/Training Program | DX: K25.1 Acute gastric ulcer with perforation (principal); Q39.9 Congenital malformation of esophagus, unspecified; K31.7 Polyp of stomach and duodenum; K22.89 Other specified disease of esophagus; K31.89 Other diseases of stomach and duodenum; I89.0 Lymphedema, not elsewhere classified; K29.50 Unspecified chronic gastritis without bleeding | CPT/HCPCS: 43255; 43239; 88305; 88342 ==

== ENCOUNTER 2025-09-12 06:15 | Day surgery (SDC) | payer OTHER, SELFPAY ==
--- NOTE | 2025-08-23 15:44 | CM ---
Demographics: confirmed
Living situation: lives alone, one story home
Support Person Post Operatively: Daughter Lolis will stay with patient 24 hours
History of
VN: yes, [facility], not currently on service
SNF: hx, does not want to go to SNF
Outpatient: [facility], encouraged patient to make appointment for 09/17
Has patient purchased required equipment:
PCP: active
Pharmacy: [facility]
Post Operative Discharge Plan: [facility], and transition to outpatient PT.
--- NOTE | 2025-08-29 09:31 | VNURNOTE ---
Patient is scheduled for an elective L MARLENE on 09/12 - she is a same day patient with Dr Ross. Spoke with patient prior to surgery. Introduced role of [facility] Liaison. Patient reports that she lives alone. Her daughter will stay with her post-op x
24 hr.
She has equip including a rolling walker.
She had [facility]N services in the past but was not same day surgery.
PCP is Dr Shirley Moreno.
Discussed [facility] joint protocol and post surgical plans.
Reviewed that she will have VN services initially and will then start outpatient PT.
Patient selects [facility] for home care needs and will go to [facility] for outpatient PT. She has yet to schedule outpt. Advised to do so KAELYN. Advised to schedule for 09/17.
Patient is in agreement with plan. Advised to bring RW with her day of surgery. Referral placed in [facility].
Plan: [facility] per [facility] joint protocol 09/12 then outpt PT TBD
[2025-08-30 13:42] VITALS: BMI 31.4
[2025-08-30 14:11] LABS: Hematocrit 38.5 % (37.0-47.0); Hemoglobin 12.6 g/dL (12.0-16.0); Mean Corp Hgb Conc. 32.7 g/dL (33.0-37.0); Mean Corpuscular Volume 96.5 fL (81.0-99.0); Platelet Count 233 10^3/uL (130-400); Red Cell Dist. Width 13.8 % (11.5-14.5)
[2025-08-30 14:35] LABS: ALT (SGPT) 21 U/L (0-35); AST (SGOT) 26 U/L (14-36); Albumin 4.4 g/dl (3.5-5.0); Alkaline Phosphatase 59 U/L (38-126); Blood Urea Nitrogen 26 mg/dl (7-17); Calcium 9.7 mg/dl (8.4-10.2); Carbon Dioxide 29 mmol/L (22-30); Chloride 103 mmol/L (98-107); Estimated Creatinine Clearance 38 ml/min; Glucose 90 mg/dl (70-99); Potassium 4.4 mmol/L (3.5-5.1); Sodium 135 mmol/L (135-145); Total Protein 7.1 g/dl (6.3-8.2); eGFR 48.94
[2025-08-30 17:16] VITALS: BMI 31.4
[2025-08-31 10:31] LABS: Glycohemoglobin (HgbA1c) 5.5 % (4.0-5.9)
--- NOTE | 2025-09-07 15:50 | CM ---
CM spoke with patient regarding Eliquis coupon. CM sent patient's via text message a picture of an active Eliquis coupon. Patient will contact this CM should she need further assistance.
[2025-09-12] VITALS (14 sets, daily range): BP systolic 115–163; BP diastolic 62–102; BMI 31.4
[2025-09-12] MEDS: CELEBREX 200 MG PO (08:21)
[2025-09-12] MEDS: TYLENOL 650 MG PO (08:21)
[2025-09-12] MEDS: NORMOSOL-R/PLASMALYTE-A 1000 IV (08:36)
[2025-09-12] MEDS: MORPHINE SULFATE 1 MG IV ×2 (10:11→10:26)
[2025-09-12] MEDS: ANCEF 5 IV (12:38)
== END 2025-09-12 13:45 | disposition home health service (06) ==
LOC: SDS 06:15
PROVIDERS: ATTENDING PHYSICIAN Orthopaedic Surgery; FAMILY PHYSICIAN Internal Medicine; OTHER PHYSICIAN Physician Assistant
DX: M16.12 Unilateral primary osteoarthritis, left hip (principal)
CPT/HCPCS: 27130; 36415; 73502; 80053; 83036; 85027; 87070; 93005; 97162; C1776